=== PATIENT | female | born 1980 | race Caucasian/White ===

== ENCOUNTER 2021-04-05 11:51 | Emergency (ER) | payer MEDICAID ==
[2021-04-05] MEDS ORDERED: Sodium Chloride 0.9% 1000 ML 1,000 ML IV STA (12:21)
[2021-04-05] MEDS ORDERED: Sodium Chloride 0.9% 1000 ML 1,000 ML ONE (12:28)
--- NOTE | 2021-04-05 12:30 | ERPHSYRPT ---
- History of Present Illness Time Seen by Provider: 04/05/21 12:12 Historian: patient Exam Limitations: no limitations Patient Subjective Stated Complaint: RUQ pain Triage Nursing Assessment: Patient ambulated back to ED and transferred self to bed. Patient A+O X3. Patient's skin pink, warm and dry. Patient complains of RUQ pain that started on friday that has gotten worse. Patient states it hurt to roll and she layed on right side holding pressure. Patient states she sneezed and then felt a burning sensation to RUQ. Patient denies pain currently but states pain is constant burning pain when moving. No rebound tenderness noted. Abdomen soft and round with BS X 4. Physician History: Patient is a 40-year-old female presents to our ED with right upper quadrant pain that started 2 days ago. Pain described as an ache that is well localized. No radiation. Patient sneezed and states she experienced a sharp burning sensation. Patient concerned that she "popped" her gallbladder. Symptoms are mild to moderate in intensity. Patient declined pain medication. Patient denies chest pain. No nausea vomiting no diarrhea. No rash. No diaphoresis. Patient requesting gallbladder imaging. Timing/Duration: day(s) (2 days ago) Activities at Onset: none Quality: aching Abdominal Pain Onset Location: RUQ Pain Radiation: no radiation Severity of Pain-Max: moderate Severity of Pain-Current: mild Modifying Factors: Improves With: movement, palpation Associated Symptoms: denies symptoms Previous symptoms: no prior history Allergies/Adverse Reactions: morphine Allergy (Mild, Verified 04/05/21 12:04) Iodinated Contrast Media Adverse Reaction (Unknown, Verified 04/05/21 12:50) Rapid Heart Beat Home Medications: Metoprolol Succinate 50 mg [Toprol Xl 50 MG] 100 mg PO BID 05/23/12 [History] Cariprazine HCl [Vraylar] 1 tab PO HS 04/05/21 [History] Clonazepam 1 tab PO TIDPRN 04/05/21 [History] Hx Tetanus, Diphtheria Vaccination/Date Given: No Hx Influenza Vaccination/Date Given: No Hx Pneumococcal Vaccination/Date Given: No Immunizations Up to Date: Yes Travel Risk - International Travel Have you traveled outside of the country in past 3 weeks: No - Coronavirus Screening Are you exhibiting any of the following symptoms?: No Close contact with a COVID-19 positive Pt in past 14-21 Days: No - Vaccine Status Have you recieved a Covid-19 vaccination: No - Review of Systems Constitutional: No Symptoms, No Fever, No Chills Eyes: No Symptoms Ears, Nose, & Throat: No Symptoms Respiratory: No Symptoms, No Cough, No Dyspnea Cardiac: No Symptoms, No Chest Pain, No Edema, No Syncope Abdominal/Gastrointestinal: No Symptoms, No Abdominal Pain, No Nausea, No Vomiting, No Diarrhea Genitourinary Symptoms: No Symptoms, No Dysuria Musculoskeletal: No Symptoms, No Back Pain, No Neck Pain Skin: No Symptoms, No Rash Neurological: No Symptoms, No Dizziness, No Focal Weakness, No Sensory Changes Psychological: No Symptoms Endocrine: No Symptoms Hematologic/Lymphatic: No Symptoms Immunological/Allergic: No Symptoms All Other Systems: Reviewed and Negative - Past Medical History Pertinent Past Medical History: Yes Neurological History: Migraines, Other ENT History: No Pertinent History Cardiac History: Hypertension Respiratory History: Sleep Apnea, Other Endocrine Medical History: No Pertinent History Musculoskeletal History: No Pertinent History GI Medical History: Hemorrhoids History: No Pertinent History Psycho-Social History: Anxiety, Bipolar, Depression, Panic Disorder, Other Female Reproductive Disorders: No Pertinent History Other Medical History: PTSD - Past Surgical History Past Surgical History: Yes Neuro Surgical History: No Pertinent History Cardiac: No Pertinent History Respiratory: No Pertinent History Gastrointestinal: No Pertinent History Genitourinary: No Pertinent History Musculoskeletal: No Pertinent History Female Surgical History: Section - Social History Smoking Status: Former smoker How long have you smoked: 15 YEARS Exposure to second hand smoke: Yes Drug Use: none Patient Lives Alone: No Significant Family History: heart disease - Female History Hx Last Menstrual Period: last week Hx Now: No - Nursing Vital Signs Nursing Vital Signs: Initial Vital Signs Temperature 97.8 F 04/05/21 12:07 Pulse Rate 89 04/05/21 12:07 Respiratory Rate 18 04/05/21 12:07 Blood Pressure 152/104 04/05/21 12:07 O2 Sat by Pulse Oximetry 97 04/05/21 12:07 Pain Scale Pain Intensity 0 - Physical Exam General Appearance: no apparent distress, alert Eye Exam: PERRL/EOMI, eyes nml inspection Ears, Nose, Throat Exam: normal ENT inspection, pharynx normal, moist mucous membranes Neck Exam: normal inspection, non-tender, supple, full range of motion Respiratory Exam: normal breath sounds, lungs clear, airway intact, No respiratory distress Cardiovascular Exam: regular rate/rhythm, normal heart sounds, normal peripheral pulses Gastrointestinal/Abdomen Exam: soft, tenderness (Tenderness palpation right upper quadrant. Overlying soft tissue intact.), No mass Back Exam: normal inspection, normal range of motion, No CVA tenderness, No vertebral tenderness Extremity Exam: normal inspection, normal range of motion, pelvis stable Neurologic Exam: alert, oriented x 3, cooperative, normal mood/affect, sensation nml, No motor deficits Skin Exam: normal color, warm, dry Lymphatic Exam: No adenopathy SpO2 Interpretation: normal SpO2: 97 O2 Delivery: Room Air - Course Nursing assessment & vital signs reviewed: Yes - CT Exams Abdomen/Pelvis CT Interpretation: Tele-radiologist Report (Fatty hepatomegaly and minimal c olonic diverticulosis. Remaining CT abdomen pelvis without contrast is negative.) - Radiology Ultrasound Exam Gallbladder Ultrasound: tele radiology report (Negative gallbladder sonogram. Incidental fatty liver.) Ordered Tests: Active Orders 24 hr Category Date Time Status IV Insertion STAT Care 04/05/21 12:21 Active ABDOMEN AND PELVIS W/0 CONTRAS [CT] Stat Exams 04/05/21 13:01 Completed GALLBLADDER [US] Stat Exams 04/05/21 12:49 Completed CBC W DIFF Stat Lab 04/05/21 12:26 Completed CMP Stat Lab 04/05/21 12:26 Completed CULTURE,URINE Stat Lab 04/05/21 12:26 Received LIPASE Stat Lab 04/05/21 12:26 Completed Manual Differential NC Stat Lab 04/05/21 12:26 Completed TROPONIN Q3H Lab 04/05/21 12:26 Completed TROPONIN Q3H Lab 04/05/21 15:30 Ordered TROPONIN Q3H Lab 04/05/21 18:30 Ordered TROPONIN Q3H Lab 04/05/21 21:30 Ordered TROPONIN Q3H Lab 04/06/21 00:30 Ordered UA W/RFX UR CULTURE Stat Lab 04/05/21 12:26 Completed Medication Summary Discontinued Medications Generic Name Dose Route Start Last Admin Trade Name Freq PRN Reason Stop Dose Admin Sodium Chloride 1,000 mls @ 999 mls/hr 04/05/21 12:21 04/05/21 14:11 Sodium Chloride 0.9% 1000 Ml IV 04/05/21 13:21 Infused .Q1H1M STA Infusion Sodium Chloride Confirm 04/05/21 12:28 Sodium Chloride 0.9% 1000 Ml Administered 04/05/21 12:29 Dose 1,000 mls @ ud .ROUTE .[facility] Lab/Rad Data: Laboratory Result Diagrams 04/05/21 12:26 04/05/21 12:26 Laboratory Results 04/05/21 04/05/21 04/05/21 Range/Units 12:26 12: 12:26 WBC (4.0-10.5) K/mm3 RBC (4.1-5.4) M/mm3 Hgb (12.0-16.0) gm/dl Hct (35-47) % MCV (78-100) fl MCH (26-32) pg MCHC (32-36) g/dl RDW (11.5-14.0) % Plt Count (150-450) K/mm3 MPV (7.5-11.0) fl Sodium 138 (137-145) mmol/L Potassium 4.2 (3.5-5.1) mmol/L Chloride 105 (98-107) mmol/L Carbon Dioxide 24 (22-30) mmol/L Anion Gap 13.8 (5-15) MEQ/L BUN 14 (7-17) mg/dL Creatinine 0.65 (0.52-1.04) mg/dL Estimated GFR > 60.0 ML/MIN Glucose 90 (74-106) mg/dL Calcium 9.5 (8.4-10.2) mg/dL Total Bilirubin 0.30 (0.2-1.3) mg/dL AST 38 H (14-36) U/L ALT 29 (0-35) U/L Alkaline Phosphatase 109 (38-126) U/L Troponin I < 0.012 (0.000-0.034) ng/mL Serum Total Protein 7.0 (6.3-8.2) g/dL Albumin 4.1 (3.5-5.0) g/dL Lipase 35 (23-300) U/L Urine Color YELLOW (YELLOW) Urine Appearance CLOUDY (CLEAR) Urine pH 5.0 (5-6) Ur Specific [place] 1.020 (1.005-1.025) Urine Protein NEGATIVE (Negative) Urine Ketones NEGATIVE (NEGATIVE) Urine Blood NEGATIVE (0-5) Lj/ul Urine Nitrite NEGATIVE (NEGATIVE) Urine Bilirubin NEGATIVE (NEGATIVE) Urine Urobilinogen NEGATIVE (0-1) mg/dL Ur Leukocyte Esterase SMALL (NEGATIVE) Urine WBC (Auto) 11-15 (0-5) /HPF Urine RBC (Auto) 0-2 (0-2) /HPF U Epithel Cells (Auto) FEW (FEW) /HPF Urine Bacteria (Auto) RARE (NEGATIVE) /HPF Urine Mucus (Auto) SLIGHT (NEGATIVE) /HPF Urine Culture Reflexed YES (NO) Urine Glucose NEGATIVE (NEGATIVE) mg/dL 04/05/21 Range/Units 12:26 WBC 11.5 H (4.0-10.5) K/mm3 RBC 4.18 (4.1-5.4) M/mm3 Hgb 12.0 (12.0-16.0) gm/dl Hct 38.1 (35-47) % MCV 91.1 (78-100) fl MCH 28.7 (26-32) pg MCHC 31.5 L (32-36) g/dl RDW 15.0 H (11.5-14.0) % Plt Count 326 (150-450) K/mm3 MPV 10.0 (7.5-11.0) fl Sodium (137-145) mmol/L Potassium (3.5-5.1) mmol/L Chloride (98-107) mmol/L Carbon Dioxide (22-30) mmol/L Anion Gap (5-15) MEQ/L BUN (7-17) mg/dL Creatinine (0.52-1.04) mg/dL Estimated GFR ML/MIN Glucose (74-106) mg/dL Calcium (8.4-10.2) mg/dL Total Bilirubin (0.2-1.3) mg/dL AST (14-36) U/L ALT (0-35) U/L Alkaline Phosphatase (38-126) U/L Troponin I (0.000-0.034) ng/mL Serum Total Protein (6.3-8.2) g/dL Albumin (3.5-5.0) g/dL Lipase (23-300) U/L Urine Color (YELLOW) Urine Appearance (CLEAR) Urine pH (5-6) Ur Specific [place] (1.005-1.025) Urine Protein (Negative) Urine Ketones (NEGATIVE) Urine Blood (0-5) Lj/ul Urine Nitrite (NEGATIVE) Urine Bilirubin (NEGATIVE) Urine Urobilinogen (0-1) mg/dL Ur Leukocyte Esterase (NEGATIVE) Urine WBC (Auto) (0-5) /HPF Urine RBC (Auto) (0-2) /HPF U Epithel Cells (Auto) (FEW) /HPF Urine Bacteria (Auto) (NEGATIVE) /HPF Urine Mucus (Auto) (NEGATIVE) /HPF Urine Culture Reflexed (NO) Urine Glucose (NEGATIVE) mg/dL - Departure Departure Disposition: Home Clinical Impression: Diverticulosis, Hepatomegaly, Arthritis of spine, UTI (urinary tract infection) Condition: Stable Critical Care Time: No Referrals: OSKAR POLANCO [ACTIVE STAFF] - Additional Instructions: Discharge/Care Plan BEN MURPHY was seen on 04/05/21 in the Emergency Room. The patient was counseled regarding Diagnosis,Lab results, Imaging studies, need for follow up and when to return to the Emergency Room. Prescriptions given: Discharge Note I have spoken with the patient and/or caregivers. I have explained the patient's condition, diagnosis and treatment plan based on the information available to me at this time. I have answered the patient's and/or caregiver's questions and addressed any concerns. The patient and/or caregivers have as good understanding of the patient's diagnosis, condition and treatment plan as can be expected at this point. The vital signs have been stable. The patient's condition is stable and appropriate for discharge from the emergency department. The patient will pursue further outpatient evaluation with the primary care physician or other designated or consulting physician as outlined in the discharge instructions. The patient and/or caregivers are agreeable to this plan of care and follow-up instructions have been explained in detail. The patient and/or caregivers have received these instruction. The patient/and or caregivers are aware that any significant change in condition or worsening of symptoms should prompt an immediate return to this or the closest emergency department or call 911. Prescriptions: Nitrofurantoin Macro 100 mg [Macrobid 100MG Capsule] 100 mg PO BID 7 Days #14 cap
[2021-04-05 12:40] LABS: Appearance CLOUDY (CLEAR); Bacteria RARE /HPF (NEGATIVE); Bilirubin NEGATIVE (NEGATIVE); Blood NEGATIVE Ery/ul (0-5); Epithelial Cells FEW /HPF (FEW); Glucose NEGATIVE (NEGATIVE); Ketones NEGATIVE (NEGATIVE); Leukocyte Esterase SMALL (NEGATIVE); Mucus SLIGHT /HPF (NEGATIVE); Nitrite NEGATIVE (NEGATIVE); Protein,Urine Dip NEGATIVE (Negative); RBC 0-2 /HPF (0-2); Urobilinogen NEGATIVE mg/dL (0-1)
[2021-04-05 12:41] LABS: Hematocrit 38.1 % (35-47); Mean Cell Volume 91.1 fl (78-100); Mean Corpuscular Hemoglobin 28.7 pg (26-32); Mean Corpuscular Hgb Concent. 31.5 g/dl (32-36); Platelet Count 326 K/mm3 (150-450); Red Blood Count 4.18 M/mm3 (4.1-5.4); White Blood Count 11.5 K/mm3 (4.0-10.5)
[2021-04-05 12:45] LABS: ALBUMIN 4.1 g/dL (3.5-5.0); ALKALINE PHOSPHATASE 109 U/L (38-126); ANION GAP 13.8 MEQ/L (5-15); BLOOD UREA NITROGEN 14 mg/dL (7-17); CHLORIDE 105 mmol/L (98-107); Calcium 9.5 mg/dL (8.4-10.2); Carbon Dioxide 24 mmol/L (22-30); Creatinine 1 0.65 mg/dL (0.52-1.04); EST GLOMERULAR FILTRATION RATE > 60.0 ML/MIN; Glucose 90 mg/dL (74-106); LIPASE 35 U/L (23-300); Potassium 4.2 mmol/L (3.5-5.1); SGOT/AST 38 U/L (14-36); SGPT/ALT 29 U/L (0-35); SODIUM 138 mmol/L (137-145)
--- NOTE | 2021-04-05 13:00 | XRAY ---
Indication: Abdomen pain. Two-dimensional gallbladder sonogram performed. Comparison: None Gallbladder normally distended without gallstones, wall thickening, or pericholecystic fluid. Common bile duct measures 6.5 mm. No intrahepatic biliary distention. Visualized pancreas unremarkable. Diffuse fatty echogenic liver without focal solid/cystic mass. No ascites. Right kidney measures 12.2 x 4.5 x 7.2 cm and sonographically unremarkable. Impression: Negative gallbladder sonogram. Incidental fatty liver.
--- NOTE | 2021-04-05 13:26 | XRAY ---
Indication: Right upper quadrant pain. Multiple contiguous axial images obtained through the abdomen and pelvis without contrast. Comparison: None Lung bases are clear. Heart not enlarged. Noncontrasted stomach and bowel loops nonobstructed with normal appendix. Minimal scattered colonic diverticulosis without diverticulitis. No free fluid/air. Diffuse fatty hepatomegaly measuring 27 cm. Remaining liver, gallbladder, pancreas, spleen, adrenal glands, kidneys, ureters, bladder, uterus, and aorta are unremarkable for noncontrast exam. Osseous structures intact with minimal/mild degenerative changes throughout the thoracolumbar spine. No ventral or inguinal hernias. Impression: 1. Fatty hepatomegaly and minimal colonic diverticulosis. 2. Remaining CT abdomen/pelvis without contrast exam is negative.
[2021-04-05 14:28] VITALS: BP 122/64; PULSE 84
[2021-04-05 14:39] VITALS: O2SAT 97
[2021-04-05 14:57] LABS: BAND 1 % (0.0-2.0); Eosinophil 3 % (0.00-3.0); Lymphocytes 26 % (24-44); Monocyte 4 % (0.0-12.0); Neutrophils 66 % (36.0-66.0); Platelet Estimate NORMAL (NORMAL); Total Cells Counted 100
== END 2021-04-05 15:06 | disposition home or self-care (01) ==
LOC: ED 11:51
DX: K57.90 Diverticulosis of intestine, part unspecified, without perforation or abscess without bleeding (principal); R16.0 Hepatomegaly, not elsewhere classified; M47.9 Spondylosis, unspecified; N39.0 Urinary tract infection, site not specified
CPT/HCPCS: 36000; 36415; 74176; 76705; 80053; 81001; 83690; 84484; 85025; 87086; 96360; 99284

== ENCOUNTER 2022-08-26 22:51 | Emergency (ER) | payer MEDICAID, OTHER ==
[2022-08-27] MEDS ORDERED: BABY ASPIRIN 81 MG CHEW PO ONE (00:46)
--- NOTE | 2022-08-27 00:53 | ERPHSYRPT ---
- History of Present Illness Time Seen by Provider: 08/27/22 00:49 Historian: patient, family Exam Limitations: no limitations Patient Subjective Stated Complaint: Pt reports "yesterday I started having weird pain in the middle of my chest between my breasts and today I vomited. I have a lot of meds being changed and anxiety so I am not sure what is going on." Triage Nursing Assessment: Pt alert and oriented x3. No apparent respiratory distress. Skin w/p/d. Ambulated to cot without difficulty. Bowel sounds present in all four quads. Abdomen soft/round/nontender. Pt points to the location of the pain as epigastric region. Physician History: Hx confirmed with mother by independent interview as source. Pt is 41 year old female with prior cardiac Hx of PVCs and negative echo. gained 200 pounds past 3 years. Has had hx epigastric abd pain in past as well. Pos family Hx cardiac at young age. No prior NV or stents, or known CAD in pt, no prior DCVT or PE. No recent hosp or procedures. Had chest pain twinges this evening and emesis x1 and came in to ER, but resolved prior to getting here and no CP now. No Hx trauma. Chest is clear, Ht reg without M. Abd soft nontender without peritoneal signs or masses. ext without edema. Timing/Duration: today Activities at Onset: none Location: substernal, central Chest Pain Radiation: abdomen Severity of Pain-Max: moderate Severity of Pain-Current: none Modifying Factors: Improves With: nothing Associated Symptoms: nausea, vomiting, heartburn, abdominal pain Prior Chest Pain/Cardiac Workup: no prior chest pain Nitro Today/Relief: no nitro taken today Aspirin Treatment Today: 81 mg x 4, provided by ED Allergies/Adverse Reactions: morphine Allergy (Mild, Verified 08/26/22 23:11) Iodinated Contrast Media Adverse Reaction (Unknown, Verified 08/26/22 23:11) Rapid Heart Beat Home Medications: Metoprolol Succinate 50 mg [Toprol Xl 50 MG] 100 mg PO BID 05/23/12 [History] clonazePAM [Clonazepam] 1 tab PO BID 04/05/21 [History] Aspirin 81 gm Chew [Baby Aspirin 81 mg Chew] 81 mg PO DAILY 08/26/22 [History] Brexpiprazole [Rexulti] 0.5 mg PO DAILY 08/26/22 [History] Levothyroxine Sodium 25 mg PO DAILY 08/26/22 [History] Losartan Potassium 100 mg PO DAILY 08/26/22 [History] Metformin HCl 500 mg [Glucophage 500 MG] 1,000 mg PO DAILY 08/26/22 [History] Rosuvastatin Calcium 5 mg PO DAILY 08/26/22 [History] Hx Tetanus, Diphtheria Vaccination/Date Given: No Hx Influenza Vaccination/Date Given: No Hx Pneumococcal Vaccination/Date Given: No Travel Risk - International Travel Have you traveled outside of the country in past 3 weeks: No - Coronavirus Screening Are you exhibiting any of the following symptoms?: No Close contact with a COVID-19 positive Pt in past 14-21 Days: No - Vaccine Status Have you recieved a Covid-19 vaccination: No - Review of Systems Constitutional: No Fever, No Chills Eyes: No Symptoms Ears, Nose, & Throat: No Symptoms Respiratory: No Cough, No Dyspnea Cardiac: Chest Pain, No Edema, No Syncope Abdominal/Gastrointestinal: Abdominal Pain, Nausea, Vomiting, No Diarrhea Genitourinary Symptoms: No Dysuria Musculoskeletal: No Back Pain, No Neck Pain Skin: No Rash Neurological: No Dizziness, No Focal Weakness, No Sensory Changes Psychological: No Symptoms Endocrine: No Symptoms Hematologic/Lymphatic: No Symptoms Immunological/Allergic: No Symptoms All Other Systems: Reviewed and Negative - Past Medical History Pertinent Past Medical History: Yes Neurological History: Migraines, Other ENT History: No Pertinent History Cardiac History: High Cholesterol, Hypertension Respiratory History: Sleep Apnea, Other Endocrine Medical History: No Pertinent History, Diabetes Type II, Hypothyroidism Musculoskeletal History: No Pertinent History GI Medical History: Hemorrhoids History: No Pertinent History Psycho-Social History: Anxiety, Bipolar, Depression, Panic Disorder, Other Female Reproductive Disorders: No Pertinent History Other Medical History: PTSD, gout - Past Surgical History Past Surgical History: Yes Neuro Surgical History: No Pertinent History Cardiac: No Pertinent History Respiratory: No Pertinent History Gastrointestinal: No Pertinent History Genitourinary: No Pertinent History Musculoskeletal: No Pertinent History Female Surgical History: Section - Social History Smoking Status: Former smoker How long have you smoked: 15 YEARS Exposure to second hand smoke: Yes Drug Use: none Patient Lives Alone: No Significant Family History: heart disease - Female History Hx Last Menstrual Period: 07/30/22 Hx Now: No - Nursing Vital Signs Nursing Vital Signs: Initial Vital Signs Temperature 99.5 F 08/26/22 22:55 Pulse Rate 100 H 08/26/22 22:55 Respiratory Rate 17 08/26/22 22:55 Blood Pressure 171/92 08/26/22 22:55 O2 Sat by Pulse Oximetry 97 08/26/22 22:55 Pain Scale Pain Intensity 0 - Physical Exam General Appearance: no apparent distress, alert Eye Exam: PERRL/EOMI, eyes nml inspection Ears, Nose, Throat Exam: normal ENT inspection, moist mucous membranes Neck Exam: normal inspection, non-tender, supple, full range of motion Respiratory Exam: normal breath sounds, lungs clear, No respiratory distress Cardiovascular Exam: regular rate/rhythm, normal heart sounds Gastrointestinal/Abdomen Exam: soft, No tenderness, No mass Pelvic Exam: deferred Rectal Exam: deferred Back Exam: normal inspection, No CVA tenderness, No vertebral tenderness Extremity Exam: normal inspection, normal range of motion Neurologic Exam: alert, oriented x 3, cooperative, normal mood/affect, sensation nml, No motor deficits Skin Exam: normal color, warm, dry SpO2 Interpretation: normal SpO2: 97 O2 Delivery: Room Air - Course Nursing assessment & vital signs reviewed: Yes EKG Interpreted by Me: Sinus Rhythm, NORMAL AXIS, NORMAL INTERVALS, NORMAL QRS, NORMAL ST-T - Radiology Exams Chest X-ray Interpretation: Reviewed by me, Other (Perihilar infiltrates and granulomata) Ordered Tests: Active Orders 24 hr Category Date Time Status Nutritional Services Director STAT Care 08/27/22 00:48 Active EKG-ER Only STAT Care 08/27/22 00:46 Active Pulse Oximetry (ED) STAT Care 08/27/22 00:46 Active CHEST 1 VIEW (PORTABLE) Stat Exams 08/27/22 00:47 Taken AMYLASE Stat Lab 08/27/22 01:25 Completed CBC W DIFF Stat Lab 08/27/22 01:25 Completed CMP Stat Lab 08/27/22 01:25 Completed CULTURE,URINE Stat Lab 08/27/22 01:08 Received D-DIMER QUANTITATIVE Stat Lab 08/27/22 01:25 Completed HCG QUALITATIVE,SERUM Stat Lab 08/27/22 01:25 Completed LIPASE Stat Lab 08/27/22 01:25 Completed Lactic Acid Stat Lab 08/27/22 01:30 Completed NT PRO BNPII Stat Lab 08/27/22 01:25 Completed TROPONIN Q4H Lab 08/27/22 01:25 Completed TROPONIN Q4H Lab 08/27/22 05:00 Ordered TROPONIN Q4H Lab 08/27/22 09:00 Ordered UA W/RFX UR CULTURE Stat Lab 08/27/22 01:08 Completed Medication Summary Discontinued Medications Generic Name Dose Route Start Last Admin Trade Name Kayli PRN Reason Stop Dose Admin Aspirin 324 mg 08/27/22 00:46 08/27/22 01:31 Aspirin 81 Mg Tab.Chew PO 08/27/22 00:47 324 mg STAT ONE Administration Lab/Rad Data: Laboratory Result Diagrams 08/27/22 01:25 08/27/22 01:25 Laboratory Results 08/27/22 08/27/22 08/27/22 Range/Units 01:30 01:25 01:25 WBC (4.0-10.5) x10^3/uL RBC (4.1-5.4) x10^6/uL Hgb (12.0-16.0) g/dL Hct (35-47) % MCV (78-100) fL MCH (26-32) pg MCHC (32-36) g/dL RDW (11.5-14.0) % Plt Count (150-450) x10^3/uL MPV (7.5-11.0) fL Gran % (36.0-66.0) % Immature Gran % (Auto) (0.00-0.4) % Nucleat RBC Rel Count (0.00-0.1) % Eos # (Auto) (0-0.5) x10^3/uL Immature Gran # (Auto) (0.00-0.03) x10^3u/L Absolute Lymphs (auto) (1.0-4.6) x10^3/uL Absolute Monos (auto) (0.0-1.3) x10^3/uL Absolute Nucleated RBC (0.00-0.01) x10^3u/L Lymphocytes % (24.0-44.0) % Monocytes % (0.0-12.0) % Eosinophils % (0.00-5.0) % Basophils % (0.0-0.4) % Absolute Granulocytes (1.4-6.9) x10^3/uL Basophils # (0-0.4) x10^3/uL D-Dimer (0.0-0.50) mg/L Sodium (137-145) mmol/L Potassium (3.5-5.1) mmol/L Chloride (98-107) mmol/L Carbon Dioxide (22-30) mmol/L Anion Gap (5-15) MEQ/L BUN (7-17) mg/dL Creatinine (0.52-1.04) mg/dL Estimated GFR ML/MIN Glucose (74-106) mg/dL Lactic Acid 1.9 (0.4-2.0) Calcium (8.4-10.2) mg/dL Total Bilirubin (0.2-1.3) mg/dL AST (14-36) U/L ALT (0-35) U/L Alkaline Phosphatase (38-126) U/L Troponin I < 0.012 (0.000-0.034) ng/mL NT-Pro-B Natriuret Pep (<300) pg/mL Serum Total Protein (6.3-8.2) g/dL Albumin (3.5-5.0) g/dL Amylase (30-110) U/L Lipase (23-300) U/L Serum , Qual NEGATIVE (Negative) Urine Color (Yellow) Urine Appearance (Clear) Urine pH (4.6-8.0) Ur Specific [place] (1.005-1.030) Urine Protein (Negative) Urine Glucose (UA) (Negative) mg/dL Urine Ketones (Negative) Urine Blood (Negative) Urine Nitrite (Negative) Urine Bilirubin (Negative) Urine Urobilinogen (0.2) mg/dL Ur Leukocyte Esterase (Negative) U Hyaline Cast (Auto) (0-2) /LPF Urine Microscopic RBC (0-5) /HPF Urine Microscopic WBC (0-5) /HPF Ur Epithelial Cells (None Seen) /HPF Urine Bacteria (None Seen) /HPF Urine Culture Reflexed (NO) 08/27/22 08/27/22 08/27/22 Range/Units 01:25 01:25 01:25 WBC 11.8 H (4.0-10.5) x10^3/uL RBC 3.82 L (4.1-5.4) x10^6/uL Hgb 11.3 L (12.0-16.0) g/dL Hct 35.5 (35-47) % MCV 92.9 (78-100) fL MCH 29.6 (26-32) pg MCHC 31.8 L (32-36) g/dL RDW 14.4 H (11.5-14.0) % Plt Count 274 (150-450) x10^3/uL MPV 9.9 (7.5-11.0) fL Gran % 73.2 H (36.0-66.0) % Immature Gran % (Auto) 2.5 H (0.00-0.4) % Nucleat RBC Rel Count 0.0 (0.00-0.1) % Eos # (Auto) 0.11 (0-0.5) x10^3/uL Immature Gran # (Auto) 0.29 H (0.00-0.03) x10^3u/L Absolute Lymphs (auto) 2.05 (1.0-4.6) x10^3/uL Absolute Monos (auto) 0.66 (0.0-1.3) x10^3/uL Absolute Nucleated RBC 0.00 (0.00-0.01) x10^3u/L Lymphocytes % 17.4 L (24.0-44.0) % Monocytes % 5.6 (0.0-12.0) % Eosinophils % 0.9 (0.00-5.0) % Basophils % 0.4 (0.0-0.4) % Absolute Granulocytes 8.64 H (1.4-6.9) x10^3/uL Basophils # 0.05 (0-0.4) x10^3/uL D-Dimer 0.29 (0.0-0.50) mg/L Sodium 138 (137-145) mmol/L Potassium 4.0 (3.5-5.1) mmol/L Chloride 104 (98-107) mmol/L Carbon Dioxide 22 (22-30) mmol/L Anion Gap 15.1 H (5-15) MEQ/L BUN 16 (7-17) mg/dL Creatinine 0.56 (0.52-1.04) mg/dL Estimated GFR > 60.0 ML/MIN Glucose 154 H (74-106) mg/dL Lactic Acid (0.4-2.0) Calcium 9.2 (8.4-10.2) mg/dL Total Bilirubin 0.40 (0.2-1.3) mg/dL AST 43 H (14-36) U/L ALT 35 (0-35) U/L Alkaline Phosphatase 160 H (38-126) U/L Troponin I (0.000-0.034) ng/mL NT-Pro-B Natriuret Pep 150 (<300) pg/mL Serum Total Protein 7.4 (6.3-8.2) g/dL Albumin 4.1 (3.5-5.0) g/dL Amylase 51 (30-110) U/L Lipase 37 (23-300) U/L Serum , Qual (Negative) Urine Color (Yellow) Urine Appearance (Clear) Urine pH (4.6-8.0) Ur Specific [place] (1.005-1.030) Urine Protein (Negative) Urine Glucose (UA) (Negative) mg/dL Urine Ketones (Negative) Urine Blood (Negative) Urine Nitrite (Negative) Urine Bilirubin (Negative) Urine Urobilinogen (0.2) mg/dL Ur Leukocyte Esterase (Negative) U Hyaline Cast (Auto) (0-2) /LPF Urine Microscopic RBC (0-5) /HPF Urine Microscopic WBC (0-5) /HPF Ur Epithelial Cells (None Seen) /HPF Urine Bacteria (None Seen) /HPF Urine Culture Reflexed (NO) 08/27/22 Range/Units 01:08 WBC (4.0-10.5) x10^3/uL RBC (4.1-5.4) x10^6/uL Hgb (12.0-16.0) g/dL Hct (35-47) % MCV (78-100) fL MCH (26-32) pg MCHC (32-36) g/dL RDW (11.5-14.0) % Plt Count (150-450) x10^3/uL MPV (7.5-11.0) fL Gran % (36.0-66.0) % Immature Gran % (Auto) (0.00-0.4) % Nucleat RBC Rel Count (0.00-0.1) % Eos # (Auto) (0-0.5) x10^3/uL Immature Gran # (Auto) (0.00-0.03) x10^3u/L Absolute Lymphs (auto) (1.0-4.6) x10^3/uL Absolute Monos (auto) (0.0-1.3) x10^3/uL Absolute Nucleated RBC (0.00-0.01) x10^3u/L Lymphocytes % (24.0-44.0) % Monocytes % (0.0-12.0) % Eosinophils % (0.00-5.0) % Basophils % (0.0-0.4) % Absolute Granulocytes (1.4-6.9) x10^3/uL Basophils # (0-0.4) x10^3/uL D-Dimer (0.0-0.50) mg/L Sodium (137-145) mmol/L Potassium (3.5-5.1) mmol/L Chloride (98-107) mmol/L Carbon Dioxide (22-30) mmol/L Anion Gap (5-15) MEQ/L BUN (7-17) mg/dL Creatinine (0.52-1.04) mg/dL Estimated GFR ML/MIN Glucose (74-106) mg/dL Lactic Acid (0.4-2.0) Calcium (8.4-10.2) mg/dL Total Bilirubin (0.2-1.3) mg/dL AST (14-36) U/L ALT (0-35) U/L Alkaline Phosphatase (38-126) U/L Troponin I (0.000-0.034) ng/mL NT-Pro-B Natriuret Pep (<300) pg/mL Serum Total Protein (6.3-8.2) g/dL Albumin (3.5-5.0) g/dL Amylase (30-110) U/L Lipase (23-300) U/L Serum , Qual (Negative) Urine Color Yellow (Yellow) Urine Appearance Cloudy A (Clear) Urine pH 6.0 (4.6-8.0) Ur Specific [place] 1.025 (1.005-1.030) Urine Protein Trace A (Negative) Urine Glucose (UA) Negative (Negative) mg/dL Urine Ketones Trace A (Negative) Urine Blood Negative (Negative) Urine Nitrite Negative (Negative) Urine Bilirubin Negative (Negative) Urine Urobilinogen 1.0 A (0.2) mg/dL Ur Leukocyte Esterase Small A (Negative) U Hyaline Cast (Auto) 3-5 A (0-2) /LPF Urine Microscopic RBC 0-2 (0-5) /HPF Urine Microscopic WBC 21-50 A (0-5) /HPF Ur Epithelial Cells Moderate A (None Seen) /HPF Urine Bacteria Few A (None Seen) /HPF Urine Culture Reflexed YES (NO) - Progress Progress: improved, re-examined Air Movement: good Progress Note: 08/27/22 02:57 Pain has resolved N/V resolved. and pt wishes to go. 08/27/22 02:59 Heart score is 2-3 0 for age, 0 for slightly suspicious, 2 for several risk factors such as DM, HPTN, fam hx, 0 for trop. Pt is advised after discussion of results that even though no cardiac event is identified, there still could be a cardiac event evolving undetected , or another CV or abdominal condition - she and family understand and wish to chose outpt f/u rather than further eval in hospital at this time, and they have the capacity to make this choice, and given the current lack of symptoms ( having resolved, Hx and findings), this is quite reasonable. 08/27/22 03:07 discussed prescription for UTI with pt and mother including risks benefits and they wish to proceed. Blood Culture(s) Obtained: No Antibiotics given: No Counseled pt/family regarding: lab results, diagnosis, need for follow-up, rad results Medical Desision Making - Independent Historian Additional History obtained from: Mother - Discussion of managment Reviewed:: Test results, Need for additional workup Agreed on:: Treatment plan, need for follow-up - Diagnostic Testing Diagnostic test were ordered, analyzed, and reviewed by me: Yes Radiological Interpretation: Reviewed by me - Risk of complications The pt has a mod risk of morbidity or mortality based on: Need for prescription drug management - Departure Departure Disposition: Home Clinical Impression: UTI (urinary tract infection), chest pain and vomiting resolved, Resolved abdominal pain Condition: Good Critical Care Time: No Referrals: RILEY BOLANOS [Primary Care Provider] - Follow up/PCP as directed Instructions: Chest Pain (DC), Urinary Tract Infection, Adult (DC), Nausea and Vomiting, Adult (DC), Abdominal Pain, Adult ED Additional Instructions: We did not determine a cause for your chest and abdominal pain or vomiting although we did find urinary tract infection so followup with your Dr. is indicated. Also have the urine rechecked to determine that it has resolved as well. There still could an underlying cardiac or other condition so seeing your Dr is important. Return meantime if symptoms recur or any other concerns. Prescriptions: Cephalexin Mh 500 mg [Keflex 500 mg] 500 mg PO Q6H 10 Days #40 cap
[2022-08-27 01:31] LABS: Absolute Neutrophil Ct (ANC) 8.64 x10^3/uL (1.4-6.9); BASOPHIL % 0.4 % (0.0-0.4); Basophil (Absolute #) 0.05 x10^3/uL (0-0.4); Eosinophil % 0.9 % (0.00-5.0); Eosinophil (Absolute #) 0.11 x10^3/uL (0-0.5); Hematocrit 35.5 % (35-47); Hemoglobin 11.3 g/dL (12.0-16.0); IMMATURE GRAN # 0.29 x10^3u/L (0.00-0.03); IMMATURE GRAN % 2.5 % (0.00-0.4); Lymphocyte (Absolute #) 2.05 x10^3/uL (1.0-4.6); Lymphocytes % 17.4 % (24.0-44.0); Mean Cell Volume 92.9 fL (78-100); Mean Corpuscular Hemoglobin 29.6 pg (26-32); Mean Corpuscular Hgb Concent. 31.8 g/dL (32-36); Mean Platelet Volume 9.9 fL (7.5-11.0); Monocyte (Absolute #) 0.66 x10^3/uL (0.0-1.3); Monocytes % 5.6 % (0.0-12.0); Neutrophil % 73.2 % (36.0-66.0); Platelet Count 274 x10^3/uL (150-450); Red Blood Count 3.82 x10^6/uL (4.1-5.4); Red Cell Distribution Width 14.4 % (11.5-14.0); White Blood Count 11.8 x10^3/uL (4.0-10.5)
[2022-08-27 01:46] LABS: Appearance Cloudy (Clear); Bacteria Few /HPF (None Seen); Bilirubin Negative (Negative); Blood Negative (Negative); Epithelial Cells Moderate /HPF (None Seen); Glucose, Urine Negative (Negative); Ketones Trace (Negative); Leukocyte Esterase Small (Negative); Nitrite Negative (Negative); Protein,Urine Dip Trace (Negative); RBC 0-2 /HPF (0-5); Specific Gravity 1.025 (1.005-1.030); WBC 21-50 /HPF (0-5)
[2022-08-27 01:47] LABS: ADD URINE CULTURE? YES (NO)
[2022-08-27 01:58] LABS: ALBUMIN 4.1 g/dL (3.5-5.0); ALKALINE PHOSPHATASE 160 U/L (38-126); AMYLASE 51 U/L (30-110); ANION GAP 15.1 MEQ/L (5-15); BLOOD UREA NITROGEN 16 mg/dL (7-17); CHLORIDE 104 mmol/L (98-107); Calcium 9.2 mg/dL (8.4-10.2); Carbon Dioxide 22 mmol/L (22-30); Creatinine 1 0.56 mg/dL (0.52-1.04); EST GLOMERULAR FILTRATION RATE > 60.0 ML/MIN; Glucose 154 mg/dL (74-106); LIPASE 37 U/L (23-300); NT PRO BNPII 150 pg/mL (<300); SGOT/AST 43 U/L (14-36); SGPT/ALT 35 U/L (0-35); SODIUM 138 mmol/L (137-145); Total Protein 7.4 g/dL (6.3-8.2)
[2022-08-27 03:28] VITALS: BP 143/83; PULSE 86; O2SAT 98
--- NOTE | 2022-08-27 08:45 | XRAY ---
Indication: Chest pain. Comparison: None Portable chest demonstrates a few calcified granulomas. No focal infiltrate, consolidation, or large effusion. Heart not enlarged for AP portable technique. Bony thorax intact. Impression: Nonacute chest with incidental old granulomatous disease.
== END 2022-08-27 03:28 | disposition home or self-care (01) ==
LOC: ED 22:51
DX: N39.0 Urinary tract infection, site not specified (principal); R07.9 Chest pain, unspecified; R11.2 Nausea with vomiting, unspecified; R10.9 Unspecified abdominal pain; E78.5 Hyperlipidemia, unspecified; I10 Essential (primary) hypertension; E11.9 Type 2 diabetes mellitus without complications; Z79.84 Long term (current) use of oral hypoglycemic drugs; Z79.899 Other long term (current) drug therapy; Z28.310 Unvaccinated for COVID-19
CPT/HCPCS: 36415; 71045; 80053; 81001; 82150; 83605; 83690; 83880; 84484; 84703; 85025; 85379; 87086; 93005; 93041; 94760; 99284; A9270-GY

== ENCOUNTER 2022-11-28 16:24 | Emergency (ER) | payer OTHER ==
--- NOTE | 2022-11-28 16:28 | ERPHSYRPT ---
- History of Present Illness Historian: patient Exam Limitations: no limitations Timing/Duration: day(s) (2) Activities at Onset: none Quality: aching, pressure Abdominal Pain Onset Location: RLQ, other (Pelvic) Pain Radiation: no radiation Severity of Pain-Max: mild (To moderate) Severity of Pain-Current: mild (To moderate) Modifying Factors: Improves With: nothing Associated Symptoms: denies symptoms Previous symptoms: no prior history Hx Tetanus, Diphtheria Vaccination/Date Given: No Hx Influenza Vaccination/Date Given: No Hx Pneumococcal Vaccination/Date Given: No - History of Present Illness Time Seen by Provider: 11/28/22 16:27 Physician History: This is a morbidly obese 42-year-old white female who presents with 2 days of pelvic pressure and right lower quadrant abdominal pain that began today. She has not had an appendectomy or cholecystectomy. She has had 2 C-sections in the past. She denies abnormal vaginal discharge. She denies vaginal bleeding. Patient has had no nausea vomiting or diarrhea symptoms. Patient has a history of PVCs but had an echo cardiogram in the past that was negative. She has a history of hypothyroidism, hypertension, diabetes, hyperlipidemia, anxiety/panic disorder and PTSD (KENDELL KHANNA) Allergies/Adverse Reactions: morphine Allergy (Mild, Verified 11/28/22 16:35) Iodinated Contrast Media Adverse Reaction (Unknown, Verified 11/28/22 16:35) Rapid Heart Beat Home Medications: Metoprolol Succinate 50 mg [Toprol Xl 50 MG] 100 mg PO BID 05/23/12 [History] clonazePAM [Clonazepam] 1 tab PO BID 04/05/21 [History] Aspirin 81 gm Chew [Baby Aspirin 81 mg Chew] 81 mg PO DAILY 08/26/22 [His tory] Levothyroxine Sodium 25 mg PO DAILY 08/26/22 [History] Losartan Potassium 100 mg PO DAILY 08/26/22 [History] Metformin HCl 500 mg [Glucophage 500 MG] 500 mg PO DAILY 08/26/22 [History] Rosuvastatin Calcium 5 mg PO DAILY 08/26/22 [History] Travel Risk - International Travel Have you traveled outside of the country in past 3 weeks: No - Coronavirus Screening Are you exhibiting any of the following symptoms?: No Close contact with a COVID-19 positive Pt in past 14-21 Days: No - Vaccine Status Have you recieved a Covid-19 vaccination: No - Review of Systems Constitutional: No Symptoms Eyes: No Symptoms Ears, Nose, & Throat: No Symptoms Respiratory: No Symptoms Cardiac: No Symptoms Abdominal/Gastrointestinal: Abdominal Pain (Described as a pressure and ache in the right lower quadrant and pelvic region), No Nausea, No Vomiting, No Diarrhea, No Constipation Genitourinary Symptoms: Other (Pelvic pressure), No Dysuria, No Hematuria, No Flank Pain, No Vaginal Bleeding, No Vaginal Discharge Musculoskeletal: No Symptoms Skin: No Symptoms Neurological: No Symptoms Psychological: No Symptoms Endocrine: No Symptoms Hematologic/Lymphatic: No Symptoms Immunological/Allergic: No Symptoms All Other Systems: Reviewed and Negative - Past Medical History Pertinent Past Medical History: Yes Neurological History: Migraines, Other ENT History: No Pertinent History Cardiac History: High Cholesterol, Hypertension Respiratory History: Sleep Apnea, Other Endocrine Medical History: No Pertinent History, Diabetes Type II, Hypothyroidism Musculoskeletal History: No Pertinent History GI Medical History: Hemorrhoids History: No Pertinent History Psycho-Social History: Anxiety, Bipolar, Depression, Panic Disorder, Other Female Reproductive Disorders: No Pertinent History Other Medical History: PTSD, gout - Past Surgical History Past Surgical History: Yes Neuro Surgical History: No Pertinent History Cardiac: No Pertinent History Respiratory: No Pertinent History Gastrointestinal: No Pertinent History Genitourinary: No Pertinent History Musculoskeletal: No Pertinent History Female Surgical History: Section - Social History Smoking Status: Former smoker How long have you smoked: 15 YEARS Exposure to second hand smoke: Yes Drug Use: none Patient Lives Alone: No Significant Family History: heart disease - Physical Exam General Appearance: no apparent distress, alert, anxiety, obese Eye Exam: PERRL/EOMI, eyes nml inspection Ears, Nose, Throat Exam: normal ENT inspection, moist mucous membranes Neck Exam: normal inspection, non-tender, supple, full range of motion Respiratory Exam: normal breath sounds, lungs clear, airway intact, No chest tenderness, No respiratory distress Cardiovascular Exam: regular rate/rhythm, normal heart sounds, normal peripheral pulses Gastrointestinal/Abdomen Exam: soft, normal bowel sounds, tenderness (Right lower quadrant to palpation), guarding (Right lower quadrant to palpation), No rebound Pelvic Exam: not done Rectal Exam: not done Back Exam: normal inspection, normal range of motion, No CVA tenderness, No vertebral tenderness Extremity Exam: normal inspection, normal range of motion, pelvis stable Neurologic Exam: alert, oriented x 3, cooperative, track greaser II-XII nml as tested, normal mood/affect, nml cerebellar function, nml station & gait, sensation nml Skin Exam: normal color, warm, dry Lymphatic Exam: No adenopathy SpO2 Interpretation: normal O2 Delivery: Room Air - Nursing Vital Signs Nursing Vital Signs: Initial Vital Signs Temperature 98.4 F 11/28/22 16:37 Pulse Rate 113 H 11/28/22 16:37 Respiratory Rate 18 11/28/22 16:37 Blood Pressure 155/74 11/28/22 16:37 O2 Sat by Pulse Oximetry 98 11/28/22 16:37 Pain Scale Pain Intensity 4 Ordered Tests: Active Orders 24 hr Category Date Time Status IV Insertion STAT Care 11/28/22 16:45 Active ABDOMEN AND PELVIS W/0 CONTRAS [CT] Stat Exams 11/28/22 16:44 Taken AMYLASE Stat Lab 11/28/22 17:00 Completed CBC W DIFF Stat Lab 11/28/22 17:00 Completed CMP Stat Lab 11/28/22 17:00 Completed CULTURE,URINE Stat Lab 11/28/22 17:04 Received HCG QUALITATIVE, SERUM Stat Lab 11/28/22 17:00 Completed LIPASE Stat Lab 11/28/22 17:00 Completed POCT GLUCOSE Stat Lab 11/28/22 20:17 Completed UA W/RFX UR CULTURE Stat Lab 11/28/22 17:04 Completed Medication Summary Generic Name Dose Route Start Last Admin Trade Name Freq PRN Reason Stop Dose Admin Ceftriaxone Sodium/Dextrose 2 g in 50 mls @ 100 mls/hr 11/28/22 21:05 11/28/22 21:09 Rocephin 2 Gm-D5w 50ml Bag IV 11/28/22 21:34 100 ml/hr STAT STA 100 mls/hr Administration Discontinued Medications Generic Name Dose Route Start Last Admin Trade Name Freq PRN Reason Stop Dose Admin Sodium Chloride 1,000 mls @ 999 mls/hr 11/28/22 20:07 11/28/22 20:08 Sodium Chloride 0.9% 1000 Ml IV 11/28/22 21:07 999 mls/hr .Q1H1M STA Administration Sodium Chloride Confirm 11/28/22 20:06 Sodium Chloride 0.9% 1000 Ml Administered 11/28/22 20:07 Dose 1,000 mls @ ud .ROUTE .STK-MED ONE Ceftriaxone Sodium/Dextrose Confirm 11/28/22 21:07 Rocephin 2 Gm-D5w 50ml Bag Administered 11/28/22 21:08 Dose 2 g in 50 mls @ ud IV .STK-MED ONE Lab/Rad Data: Laboratory Result Diagrams 11/28/22 17:00 11/28/22 17:00 Laboratory Results 11/28/22 11/28/22 11/28/22 Range/Units 20:17 17:04 17:00 WBC (4.0-10.5) x10^3/uL RBC (4.1-5.4) x10^6/uL Hgb (12.0-16.0) g/dL Hct (35-47) % MCV (78-100) fL MCH (26-32) pg MCHC (32-36) g/dL RDW (11.5-14.0) % Plt Count (150-450) x10^3/uL MPV (7.5-11.0) fL Gran % (36.0-66.0) % Immature Gran % (Auto) (0.00-0.4) % Nucleat RBC Rel Count (0.00-0.1) % Eos # (Auto) (0-0.5) x10^3/uL Immature Gran # (Auto) (0.00-0.03) x10^3u/L Absolute Lymphs (auto) (1.0-4.6) x10^3/uL Absolute Monos (auto) (0.0-1.3) x10^3/uL Absolute Nucleated RBC (0.00-0.01) x10^3u/L Lymphocytes % (24.0-44.0) % Monocytes % (0.0-12.0) % Eosinophils % (0.00-5.0) % Basophils % (0.0-0.4) % Absolute Granulocytes (1.4-6.9) x10^3/uL Basophils # (0-0.4) x10^3/uL Sodium (137-145) mmol/L Potassium (3.5-5.1) mmol/L Chloride (98-107) mmol/L Carbon Dioxide (22-30) mmol/L Anion Gap (5-15) MEQ/L BUN (7-17) mg/dL Creatinine (0.52-1.04) mg/dL Estimated GFR ML/MIN Glucose (74-106) mg/dL POC Glucometer 116 H (74 to 106) mg/dL Calcium (8.4-10.2) mg/dL Total Bilirubin (0.2-1.3) mg/dL AST (14-36) U/L ALT (0-35) U/L Alkaline Phosphatase (38-126) U/L Serum Total Protein (6.3-8.2) g/dL Albumin (3.5-5.0) g/dL Amylase (30-110) U/L Lipase (23-300) U/L Serum HCG, Qual NEGATIVE (NEGATIVE) Urine Color Bradley A (Yellow) Urine Appearance Turbid A (Clear) Urine pH 5.0 (4.6-8.0) Ur Specific [place] 1.020 (1.005-1.030) Urine Protein 30 (Negative) Urine Glucose (UA) Negative (Negative) mg/dL Urine Ketones Negative (Negative) Urine Blood Moderate A (Negative) Urine Nitrite Positive A (Negative) Urine Bilirubin Moderate A (Negative) Urine Urobilinogen 1.0 A (0.2) mg/dL Ur Leukocyte Esterase Large A (Negative) U Hyaline Cast (Auto) NONE SEEN (0-2) /LPF Urine Microscopic RBC 0-2 (0-5) /HPF Urine Microscopic WBC 51-100 A (0-5) /HPF Ur Epithelial Cells Moderate A (None Seen) /HPF Urine Bacteria Moderate A (None Seen) /HPF Urine Culture Reflexed YES (NO) 11/28/22 11/28/22 Range/Units 17:00 17:00 WBC 15.0 H (4.0-10.5) x10^3/uL RBC 4.52 (4.1-5.4) x10^6/uL Hgb 13.2 (12.0-16.0) g/dL Hct 40.6 (35-47) % MCV 89.8 (78-100) fL MCH 29.2 (26-32) pg MCHC 32.5 (32-36) g/dL RDW 14.7 H (11.5-14.0) % Plt Count 377 (150-450) x10^3/uL MPV 9.7 (7.5-11.0) fL Gran % 76.3 H (36.0-66.0) % Immature Gran % (Auto) 1.4 H (0.00-0.4) % Nucleat RBC Rel Count 0.0 (0.00-0.1) % Eos # (Auto) 0.11 (0-0.5) x10^3/uL Immature Gran # (Auto) 0.21 H (0.00-0.03) x10^3u/L Absolute Lymphs (auto) 2.41 (1.0-4.6) x10^3/uL Absolute Monos (auto) 0.75 (0.0-1.3) x10^3/uL Absolute Nucleated RBC 0.00 (0.00-0.01) x10^3u/L Lymphocytes % 16.1 L (24.0-44.0) % Monocytes % 5.0 (0.0-12.0) % Eosinophils % 0.7 (0.00-5.0) % Basophils % 0.5 (0.0-0.4) % Absolute Granulocytes 11.42 H (1.4-6.9) x10^3/uL Basophils # 0.07 (0-0.4) x10^3/uL Sodium 136 L (137-145) mmol/L Potassium 3.5 (3.5-5.1) mmol/L Chloride 96 L (98-107) mmol/L Carbon Dioxide 22 (22-30) mmol/L Anion Gap 20.9 H (5-15) MEQ/L BUN 18 H (7-17) mg/dL Creatinine 0.74 (0.52-1.04) mg/dL Estimated GFR > 60.0 ML/MIN Glucose 146 H (74-106) mg/dL POC Glucometer (74 to 106) mg/dL Calcium 9.7 (8.4-10.2) mg/dL Total Bilirubin 0.60 (0.2-1.3) mg/dL AST 68 H (14-36) U/L ALT 39 H (0-35) U/L Alkaline Phosphatase 175 H (38-126) U/L Serum Total Protein 8.7 H (6.3-8.2) g/dL Albumin 4.6 (3.5-5.0) g/dL Amylase 56 (30-110) U/L Lipase 49 (23-300) U/L Serum HCG, Qual (NEGATIVE) Urine Color (Yellow) Urine Appearance (Clear) Urine pH (4.6-8.0) Ur Specific [place] (1.005-1.030) Urine Protein (Negative) Urine Glucose (UA) (Negative) mg/dL Urine Ketones (Negative) Urine Blood (Negative) Urine Nitrite (Negative) Urine Bilirubin (Negative) Urine Urobilinogen (0.2) mg/dL Ur Leukocyte Esterase (Negative) U Hyaline Cast (Auto) (0-2) /LPF Urine Microscopic RBC (0-5) /HPF Urine Microscopic WBC (0-5) /HPF Ur Epithelial Cells (None Seen) /HPF Urine Bacteria (None Seen) /HPF Urine Culture Reflexed (NO) - Progress Progress: improved, pain not gone completely, re-examined Counseled pt/family regarding: lab results, diagnosis, need for follow-up, rad results - Progress Progress Note: 11/28/22 19:07 Patient transfer of care to Dr. Pinto at shift change. He will follow-up on the work-up study results and make final disposition. (KENDELL KHANNA) 11/28/22 21:07 Patient is checked out to me at shift change from Dr. Khanna with pending CT abdomen pelvis read. Patient presented with right-sided abdominal pain/pelvic pain gradually started couple days ago with progressive worsening. Patient during my evaluation is not complaining of any pain. Patient states it comes and goes and does not need any pain medications. Her work-up showed white count of 15, gap of 20 with normal bicarb and no ketones in the urine, with a glucose of 116, not in DKA. She is given fluid bolus. Feeling much better on r eevaluation. She does have UTI and I have given a dose of 2 g Rocephin IV in here. CT abdomen pelvis preliminary read by Dr. Gonzalez revealed 7 cm right ovarian cyst but no other acute abdominal pelvic findings. Patient is not in any pain on repeated evaluation at all. I do not think it is ovarian torsion. No acute appendicitis. No stone or obstructive uropathy. Does have UTI and will continue with cefpodoxime to go home. Recommended outpatient primary care and [facility] follow-up for further evaluation. Discussed with patient in detail about symptoms/signs of worsening needing emergent return to ER which she seems understanding. Stable for discharge. (PORFIRIO PINTO) Medical Desision Making - Independent Historian Additional History obtained from: Mother - Diagnostic Testing Diagnostic test were ordered, analyzed, and reviewed by me: Yes Radiological Interpretation: Reviewed by me, Teleradiologist Report - Risk of complications The pt has a mod risk of morbidity or mortality based on: Need for prescription drug management - Departure Departure Disposition: Home Critical Care Time: No - Departure Clinical Impression: Abdominal pain, Ovarian cyst, Acute UTI Condition: Stable Referrals: SARAH DE LA PAZ NP [Primary Care Provider] - Follow up with PCP 1 day BONNY BARRON DO [ACTIVE STAFF] - Follow up/PCP as directed (Call tomorrow for appointment for reevaluation of ovarian cyst) Instructions: Urinary Tract Infection, Adult (DC), Ovarian Cyst ED Additional Instructions: Take Tylenol/diclofenac as needed for pain. Follow-up with primary care and [facility] for reevaluation. Drink plenty of fluids to keep yourself well-hydrated. Return to ER for intractable pain/vomiting/difficulty urination/fever chills etc. Prescriptions: Diclofenac Sodium 50 mg PO TID PRN 7 Days #20 tab PRN Reason: Pain Cefpodoxime Proxetil 200 mg [Vantin 200 mg] 200 mg PO BID 7 Days #14 tablet
[2022-11-28 17:33] LABS: Absolute Neutrophil Ct (ANC) 11.42 x10^3/uL (1.4-6.9); BASOPHIL % 0.5 % (0.0-0.4); Basophil (Absolute #) 0.07 x10^3/uL (0-0.4); Eosinophil % 0.7 % (0.00-5.0); Eosinophil (Absolute #) 0.11 x10^3/uL (0-0.5); Hematocrit 40.6 % (35-47); Hemoglobin 13.2 g/dL (12.0-16.0); IMMATURE GRAN # 0.21 x10^3u/L (0.00-0.03); IMMATURE GRAN % 1.4 % (0.00-0.4); Lymphocyte (Absolute #) 2.41 x10^3/uL (1.0-4.6); Lymphocytes % 16.1 % (24.0-44.0); Mean Cell Volume 89.8 fL (78-100); Mean Corpuscular Hemoglobin 29.2 pg (26-32); Mean Corpuscular Hgb Concent. 32.5 g/dL (32-36); Mean Platelet Volume 9.7 fL (7.5-11.0); Monocyte (Absolute #) 0.75 x10^3/uL (0.0-1.3); Neutrophil % 76.3 % (36.0-66.0); Platelet Count 377 x10^3/uL (150-450); Red Blood Count 4.52 x10^6/uL (4.1-5.4); Red Cell Distribution Width 14.7 % (11.5-14.0)
[2022-11-28 17:48] LABS: ALBUMIN 4.6 g/dL (3.5-5.0); ALKALINE PHOSPHATASE 175 U/L (38-126); AMYLASE 56 U/L (30-110); ANION GAP 20.9 MEQ/L (5-15); BLOOD UREA NITROGEN 18 mg/dL (7-17); CHLORIDE 96 mmol/L (98-107); Calcium 9.7 mg/dL (8.4-10.2); Carbon Dioxide 22 mmol/L (22-30); Creatinine 1 0.74 mg/dL (0.52-1.04); EST GLOMERULAR FILTRATION RATE > 60.0 ML/MIN; Glucose 146 mg/dL (74-106); LIPASE 49 U/L (23-300); Potassium 3.5 mmol/L (3.5-5.1); SGOT/AST 68 U/L (14-36); SGPT/ALT 39 U/L (0-35); SODIUM 136 mmol/L (137-145); Total Protein 8.7 g/dL (6.3-8.2)
[2022-11-28 17:52] LABS: HCG SERUM TEST NEGATIVE (NEGATIVE)
[2022-11-28 18:03] LABS: Appearance Turbid (Clear); Bilirubin Moderate (Negative); Blood Moderate (Negative); Glucose, Urine Negative (Negative); Hyaline Casts NONE SEEN /LPF (0-2); Ketones Negative (Negative); Leukocyte Esterase Large (Negative); Nitrite Positive (Negative); Protein,Urine Dip 30 (Negative)
[2022-11-28 18:04] LABS: Bacteria Moderate /HPF (None Seen); Epithelial Cells Moderate /HPF (None Seen); RBC 0-2 /HPF (0-5); WBC 51-100 /HPF (0-5)
[2022-11-28 18:05] LABS: ADD URINE CULTURE? YES (NO)
[2022-11-28] MEDS ORDERED: Sodium Chloride 0.9% 1000 ML 1,000 ML ONE (20:06)
[2022-11-28] MEDS ORDERED: Sodium Chloride 0.9% 1000 ML 1,000 ML IV STA (20:07)
[2022-11-28] MEDS ORDERED: ROCEPHIN 2 Gm-D5w 50ML BAG** 2 G/50 ML IVPB IV STA (21:05)
[2022-11-28] MEDS ORDERED: ROCEPHIN 2 Gm-D5w 50ML BAG** 2 G/50 ML IVPB IV ONE (21:07)
[2022-11-28 21:43] VITALS: BP 113/53; PULSE 99; O2SAT 96
--- NOTE | 2022-11-29 08:34 | XRAY ---
Indication: Pelvic pain/pressure 3 days. Multiple contiguous axial images obtained through the abdomen and pelvis without contrast. Comparison: April 05, 2021. Lung bases remain clear. Heart not enlarged. Noncontrasted stomach and bowel loops nonobstructed again with normal appendix. Minimal colonic diverticulosis without diverticulitis. Again 27 cm fatty hepatomegaly. New 7 cm right ovary cyst. Uterus demonstrates thickened endometrial stripe up to 2 cm. No free fluid/air. Remaining liver, gallbladder, pancreas, spleen, adrenal glands, kidneys, ureters, bladder, uterus, and aorta are unremarkable for noncontrast exam. Osseous structures intact again with minimal/mild degenerative changes throughout the spine. Impression: 1. New 7 cm right ovary cyst. Uterus also demonstrates thickened endometrial stripe that should be correlated with patient's menstrual cycle. Pelvic sonogram may yield further information if clinically warranted. 2. Again fatty hepatomegaly and colonic diverticulosis.
== END 2022-11-28 22:02 | disposition home or self-care (01) ==
LOC: ED 16:24
DX: N39.0 Urinary tract infection, site not specified (principal); N83.201 Unspecified ovarian cyst, right side; R10.31 Right lower quadrant pain; I10 Essential (primary) hypertension; E11.9 Type 2 diabetes mellitus without complications; E78.5 Hyperlipidemia, unspecified; Z79.84 Long term (current) use of oral hypoglycemic drugs; Z79.899 Other long term (current) drug therapy; Z28.310 Unvaccinated for COVID-19
CPT/HCPCS: 36000; 36415; 74176; 80053; 81001; 82150; 82947; 83690; 84703; 85025; 87086; 96360; 96365; 99284; J0696

== ENCOUNTER 2023-01-13 15:51 | Emergency (ER) | payer OTHER ==
[2023-01-13 16:03] VITALS: TEMP 96.5; O2SAT 96
--- NOTE | 2023-01-13 16:05 | ERPHSYRPT ---
- History of Present Illness Time Seen by Provider: 01/13/23 16:04 Source: patient Exam Limitations: no limitations Patient Subjective Stated Complaint: Right leg swelling Triage Nursing Assessment: Patient ambulated back to ED and transferred self to bed. Patient A+O X 3. Patient's skin pink, warm and dry. Patient complains of right lower leg swelling for one week. Patient's right inner calf noted to be swollen. Patient denies pain or discomfort. No redness or warmth noted. Physician History: This is a morbidly obese 42-year-old white female whose family has a history of blood clots and she presents with an enlarging, posterior right lower leg subcutaneous mass that she is concerned about a blood clot. It is tender. It has been present for a week and is enlarging. She denies fever. She denies redness. She denies trauma to the area. This patient has a history of hyperlipidemia, diabetes, hypertension, hypothyroidism, sleep apnea, panic disorder, PTSD and bipolar disorder. Method of Injury: other (No injury) Occurred: last week (Present and enlarging) Severity of Pain-Max: mild Severity of Pain-Current: mild Lower Extremities Pain: leg: right (Lower leg posteriorly, subcutaneous) Modifying Factors: Improves With: other (Mildly tender to palpation) Associated Symptoms: none Allergies/Adverse Reactions: morphine Allergy (Mild, Verified 01/13/23 15:57) Iodinated Contrast Media Adverse Reaction (Unknown, Verified 01/13/23 15:57) Rapid Heart Beat Home Medications: Metoprolol Succinate 50 mg [Toprol Xl 50 MG] 100 mg PO BID 05/23/12 [History] clonazePAM [Clonazepam] 1 tab PO BID 04/05/21 [History] Aspirin 81 gm Chew [Baby Aspirin 81 mg Chew] 81 mg PO DAILY 08/26/22 [History] Levothyroxine Sodium 25 mg PO DAILY 08/26/22 [History] Losartan Potassium 100 mg PO DAILY 08/26/22 [History] Metformin HCl 500 mg [Glucophage 500 MG] 500 mg PO DAILY 08/26/22 [History] Rosuvastatin Calcium 5 mg PO DAILY 08/26/22 [History] Hx Tetanus, Diphtheria Vaccination/Date Given: No Hx Influenza Vaccination/Date Given: No Hx Pneumococcal Vaccination/Date Given: No Immunizations Up to Date: Yes Travel Risk - International Travel Have you traveled outside of the country in past 3 weeks: No - Coronavirus Screening Are you exhibiting any of the following symptoms?: No Close contact with a COVID-19 positive Pt in past 14-21 Days: No - Vaccine Status Have you recieved a Covid-19 vaccination: No - Review of Systems Constitutional: No Symptoms Eyes: No Symptoms Ears, Nose, & Throat: No Symptoms Respiratory: No Symptoms Cardiac: No Symptoms Abdominal/Gastrointestinal: No Symptoms Genitourinary Symptoms: No Symptoms Musculoskeletal: Other (Mildly tender visible subcutaneous soft tissue mass) Skin: No Symptoms Neurological: No Symptoms Psychological: No Symptoms Endocrine: No Symptoms Hematologic/Lymphatic: No Symptoms Immunological/Allergic: No Symptoms All Other Systems: Reviewed and Negative - Past Medical History Pertinent Past Medical History: Yes Neurological History: Migraines, Other ENT History: No Pertinent History Cardiac History: High Cholesterol, Hypertension Respiratory History: Sleep Apnea, Other Endocrine Medical History: No Pertinent History, Diabetes Type II, Hypothyroidism Musculoskeletal History: No Pertinent History GI Medical History: Hemorrhoids History: No Pertinent History Psycho-Social History: Anxiety, Bipolar, Depression, Panic Disorder, Other Female Reproductive Disorders: No Pertinent History Other Medical History: PTSD, gout - Past Surgical History Past Surgical History: Yes Neuro Surgical History: No Pertinent History Cardiac: No Pertinent History Respiratory: No Pertinent History Gastrointestinal: No Pertinent History Genitourinary: No Pertinent History Musculoskeletal: No Pertinent History Female Surgical History: Section - Social History Smoking Status: Former smoker How long have you smoked: 15 YEARS Exposure to second hand smoke: Yes Drug Use: none Patient Lives Alone: No Significant Family History: heart disease - Female History Hx Last Menstrual Period: 01/03/2023 Hx Now: No - Nursing Vital Signs Nursing Vital Signs: Initial Vital Signs Temperature 96.5 F 01/13/23 15:58 Pulse Rate 91 H 01/13/23 15:58 Respiratory Rate 18 01/13/23 15:58 Blood Pressure 156/91 01/13/23 15:58 O2 Sat by Pulse Oximetry 96 01/13/23 15:58 Pain Scale Pain Intensity 0 - Physical Exam General Appearance: no apparent distress, alert, anxiety, obese Eyes, Ears, Nose, Throat Exam: normal ENT inspection, moist mucous membranes Neck Exam: normal inspection, non-tender, supple, full range of motion Cardiovascular/Respiratory Exam: chest non-tender, no respiratory distress Gastrointestinal/Abdominal Exam: non-tender Back Exam: normal inspection, normal range of motion, No CVA tenderness, No vertebral tenderness Hips Exam: bilateral: non-tender, normal inspection, normal range of motion, no evidence of injury Legs Exam: right leg: swelling (Mildly tender to palpation, visible right posterior lower leg subcutaneous mass), left leg: non-tender, normal inspection, bilateral leg: normal range of motion, no evidence of injury Knees Exam: bilateral knee: non-tender, normal inspection, normal range of mot ion, no evidence of injury Ankle Exam: bilateral ankle: non-tender, normal inspection, normal range of motion, no evidence of injury Foot Exam: bilateral foot: non-tender, normal inspection, normal range of motion, no evidence of injury Neuro/Tendon Exam: normal sensation, normal motor functions, normal tendon functions, no evidence tendon injury Mental Status Exam: alert, oriented x 3, cooperative Skin Exam: normal color, warm, dry SpO2 Interpretation: normal SpO2: 96 O2 Delivery: Room Air - Course Nursing assessment & vital signs reviewed: Yes Ordered Tests: Active Orders 24 hr Category Date Time Status VENOUS UNILAT/LIMITED EXTREMIT [US] Stat Exams 01/13/23 16:21 Taken - Progress Progress: unchanged, pain not gone completely, re-examined Progress Note: 01/13/23 17:23 Venous Doppler right lower extremity was interpreted by the ultrasound t ech/cutting and splicing supervisor and she reported that this study is negative for DVT. This patient's medical issue is 1 of low complexity. The level complexity and the work-up performed is based on the patient's past medical history, family history, review of the patient's medication list, review of the patient's drug allergy list, history of present illness, physical findings on examination. The study performed in this patient was a venous Doppler right lower extremity. It was negative for DVT. Patient will be discharged home and instructed to follow-up with primary care provider for further evaluation management. Counseled pt/family regarding: diagnosis, need for follow-up, rad results Medical Desision Making - Diagnostic Testing Diagnostic test were ordered, analyzed, and reviewed by me: Yes Radiological Interpretation: Reviewed by me, Teleradiologist Report - Risk of complications Low Risk: Low risk of morbidity from additional dx testing or treatment - Departure Departure Disposition: Home Clinical Impression: Right leg swelling Condition: Stable Critical Care Time: No Referrals: SARAH DE LA PAZ NP [Primary Care Provider] - Follow up/PCP as directed Additional Instructions: Continue medication as prescribed. Follow-up with your primary care provider for further evaluation management.
[2023-01-13 17:02] VITALS: RESP 17
[2023-01-13 17:43] VITALS: BP 147/71; PULSE 79
--- NOTE | 2023-01-14 08:59 | XRAY ---
Indication: Swelling. Two-dimensional sonogram and color Doppler imaging of the major venous vessels of the right leg performed. Comparison: None No thrombus seen in the examined deep venous vessels of the right leg including greater saphenous vein. Veins demonstrate normal compressibility. Venous waveforms are normal with and without augmentation. Targeted soft tissues ultrasound over calf is negative for focal solid/cystic mass or abnormal fluid collection. Impression: Right leg negative for DVT. Comment: Preliminary report was given.
== END 2023-01-13 17:44 | disposition home or self-care (01) ==
LOC: ED 15:51
DX: R22.41 Localized swelling, mass and lump, right lower limb (principal); M79.661 Pain in right lower leg; E78.5 Hyperlipidemia, unspecified; E11.9 Type 2 diabetes mellitus without complications; I10 Essential (primary) hypertension; Z79.84 Long term (current) use of oral hypoglycemic drugs; Z79.899 Other long term (current) drug therapy; Z28.310 Unvaccinated for COVID-19
CPT/HCPCS: 93971; 99282

== ENCOUNTER 2023-02-14 04:32 | Emergency (ER) | payer OTHER ==
[2023-02-14 04:40] VITALS: TEMP 98.1
--- NOTE | 2023-02-14 05:36 | ERPHSYRPT ---
<BLAIRLEIDYR - Last Filed: 02/14/23 06:31> - History of Present Illness Time Seen by Provider: 02/14/23 05:00 Historian: patient Exam Limitations: no limitations Patient Subjective Stated Complaint: pt states she has been having intermittent chest pain since approx 2200 last night. states she thinks it may be anxiety. describes pain as tightness and squeezing and radiates into upper abd Triage Nursing Assessment: pt alert and oriented, answers questions approp. pt ambulates into room with steady gait noted. respirations nonlabored. skin warm and dry, heart rate 94, sinus rhythm. Physician History: 42 years old female with history of PVCs/PACs presented in the ER with chief complaint of substernal chest pressure since 10 PM intermittent, moderate intensity, radiating to upper abdomen, no significant aggravating or relieving factors. Denies associated difficulty breathing. No fever chills or cough reported. Allergies/Adverse Reactions: morphine Allergy (Mild, Verified 02/14/23 04:53) Iodinated Contrast Media Adverse Reaction (Unknown, Verified 02/14/23 04:53) Rapid Heart Beat Home Medications: Metoprolol Succinate 50 mg [Toprol Xl 50 MG] 100 mg PO BID 05/23/12 [History] clonazePAM [Clonazepam] 1 tab PO BID 04/05/21 [History] Aspirin 81 gm Chew [Baby Aspirin 81 mg Chew] 81 mg PO DAILY 08/26/22 [History] Levothyroxine Sodium 25 mg PO DAILY 08/26/22 [History] Losartan Potassium 100 mg PO DAILY 08/26/22 [History] Metformin HCl 500 mg [Glucophage 500 MG] 500 mg PO DAILY 08/26/22 [History] Rosuvastatin Calcium 5 mg PO DAILY 08/26/22 [History] Hx Tetanus, Diphtheria Vaccination/Date Given: No Hx Influenza Vaccination/Date Given: No Hx Pneumococcal Vaccination/Date Given: No Immunizations Up to Date: No Travel Risk - International Travel Have you traveled outside of the country in past 3 weeks: No - Coronavirus Screening Are you exhibiting any of the following symptoms?: No Close contact with a COVID-19 positive Pt in past 14-21 Days: No - Vaccine Status Have you recieved a Covid-19 vaccination: No - Review of Systems Constitutional: No Symptoms Eyes: No Symptoms Ears, Nose, & Throat: No Symptoms Respiratory: No Symptoms Cardiac: Chest Pain Abdominal/Gastrointestinal: No Symptoms Genitourinary Symptoms: No Symptoms Musculoskeletal: No Symptoms Skin: No Symptoms Neurological: No Symptoms Psychological: Anxiety Endocrine: No Symptoms Hematologic/Lymphatic: No Symptoms Immunological/Allergic: No Symptoms - Past Medical History Pertinent Past Medical History: Yes Neurological History: Migraines, Other ENT History: No Pertinent History Cardiac History: High Cholesterol, Hypertension Respiratory History: Sleep Apnea, Other Endocrine Medical History: No Pertinent History, Diabetes Type II, Hypothyroidism Musculoskeletal History: No Pertinent History GI Medical History: Hemorrhoids History: No Pertinent History Psycho-Social History: Anxiety, Bipolar, Depression, Panic Disorder, Other Female Reproductive Disorders: No Pertinent History Other Medical History: PTSD, gout, pcos - Past Surgical History Past Surgical History: Yes Neuro Surgical History: No Pertinent History Cardiac: No Pertinent History Respiratory: No Pertinent History Gastrointestinal: No Pertinent History Genitourinary: No Pertinent History Musculoskeletal: No Pertinent History Female Surgical History: Section - Social History Smoking Status: Former smoker How long have you smoked: 15 YEARS Exposure to second hand smoke: No Drug Use: none Patient Lives Alone: No Significant Family History: heart disease - Female History Hx Last Menstrual Period: last month Hx Now: No - Physical Exam General Appearance: no apparent distress, alert, anxiety Eye Exam: PERRL/EOMI Ears, Nose, Throat Exam: normal ENT inspection Neck Exam: normal inspection, non-tender, full range of motion Respiratory Exam: normal breath sounds, lungs clear Cardiovascular Exam: regular rate/rhythm, normal heart sounds Gastrointestinal/Abdomen Exam: soft, normal bowel sounds, No tenderness Back Exam: normal inspection, normal range of motion Extremity Exam: normal inspection, normal range of motion Neurologic Exam: alert, oriented x 3, cooperative Skin Exam: normal color SpO2 Interpretation: normal SpO2: 96 O2 Delivery: Room Air - Course EKG Interpreted by Me: RATE (97), Sinus Rhythm, NORMAL AXIS, NORMAL INTERVALS, Non-specific ST Changes - Progress Progress: improved, re-examined Air Movement: good Progress Note: 02/14/23 05:35 42 years old female with history of PVCs/PACs presented in the ER with chief complaint of substernal chest pressure since 10 PM intermittent, moderate intensity, radiating to upper abdomen, no significant aggravating or relieving factors. Denies associated difficulty breathing. No fever chills or cough reported. She is given Toradol for symptomatic relief. EKG is sinus rhythm with no acute ST elevations. Although chest pain work-up. 02/14/23 06:31 She is feeling much better on reevaluation after Toradol. Chest pain is resolved. Negative troponins. Chest x-ray negative for any acute cardiopulmonary findings reviewed by me, official report is pending. 02/14/23 06:50 Waiting for second troponin, care is transferred to Dr. Garcia at shift change. Blood Culture(s) Obtained: No Antibiotics given: No Counseled pt/family regarding: lab results, diagnosis, need for follow-up, rad results Medical Desision Making - Diagnostic Testing Diagnostic test were ordered, analyzed, and reviewed by me: Yes Radiological Interpretation: Interpreted by me, Reviewed by me - Departure Clinical Impression: Chest pain Condition: Stable Referrals: SARAH D ELA PAZ, [employer]PING AND [employer]CEIVING [employer]PER[employer]OR [Primary Care Provider] - Follow up/PCP as directed Instructions: Chest Pain (DC) Additional Instructions: Follow up with your family MD Return to ER for increasing pain or shortness of breath <PRAVIN GARCIA - Last Filed: 02/14/23 09:06> - Nursing Vital Signs Nursing Vital Signs: Initial Vital Signs Temperature 98.1 F 02/14/23 04:33 Pulse Rate 97 H 02/14/23 04:33 Respiratory Rate 18 02/14/23 04:33 Blood Pressure 143/89 02/14/23 04:33 O2 Sat by Pulse Oximetry 96 02/14/23 04:33 Pain Scale Pain Intensity 0 - Radiology Ultrasound Exam Gallbladder Ultrasound: discussed w/radiologist (LINDA) Ordered Tests: Active Orders 24 hr Category Date Time Status Regular Senior Care Provider STAT Care 02/14/23 05:41 Active EKG-ER Only STAT Care 02/14/23 05:39 Active IV Insertion STAT Care 02/14/23 05:39 Active CHEST 1 VIEW (PORTABLE) Stat Exams 02/14/23 05:56 Taken US ABDOMEN LIMITED [ABDOMINAL-LIMITED] [US] Stat Exams 02/14/23 07:29 Completed CBC W DIFF Stat Lab 02/14/23 05:55 Completed CMP Stat Lab 02/14/23 05:55 Completed HCG QUALITATIVE, SERUM Stat Lab 02/14/23 05:55 Completed NT PRO BNPII Stat Lab 02/14/23 05:55 Completed TROPONIN Q4H Lab 02/14/23 05:55 Completed TROPONIN Q4H Lab 02/14/23 08:06 Completed TROPONIN Q4H Lab 02/14/23 13:45 Ordered Transfer Order Routine Transfer 02/14/23 Ordered Medication Summary Discontinued Medications Generic Name Dose Route Start Last Admin Trade Name Freq PRN Reason Stop Dose Admin Aspirin 324 mg 02/14/23 05:39 02/14/23 05:47 Aspirin 81 Mg Tab.Chew PO 02/14/23 05:40 324 mg STAT ONE Administration Aspirin Confirm 02/14/23 05:43 Aspirin 81 Mg Tab.Chew Administered 02/14/23 05:44 Dose 324 mg .ROUTE .STK-MED ONE Ketorolac Tromethamine 30 mg 02/14/23 05:41 02/14/23 05:46 Ketorolac Tromethamine 30 Mg/Ml Inj IV 02/14/23 05:42 30 mg STAT ONE Administration Ketorolac Tromethamine Confirm 02/14/23 05:43 Ketorolac Tromethamine 30 Mg/Ml Inj Administered 02/14/23 05:44 Dose 30 mg .ROUTE .STK-MED ONE Lab/Rad Data: Laboratory Result Diagrams 02/14/23 05:55 02/14/23 05:55 Laboratory Results 02/14/23 02/14/23 02/14/23 Range/Units 08:06 05:55 05:55 WBC (4.0-10.5) x10^3/uL RBC (4.1-5.4) x10^6/uL Hgb (12.0-16.0) g/dL Hct (35-47) % MCV (78-100) fL MCH (26-32) pg MCHC (32-36) g/dL RDW (11.5-14.0) % Plt Count (150-450) x10^3/uL MPV (7.5-11.0) fL Gran % (36.0-66.0) % Immature Gran % (Auto) (0.00-0.4) % Nucleat RBC Rel Count (0.00-0.1) % Eos # (Auto) (0-0.5) x10^3/uL Immature Gran # (Auto) (0.00-0.03) x10^3u/L Absolute Lymphs (auto) (1.0-4.6) x10^3/uL Absolute Monos (auto) (0.0-1.3) x10^3/uL Absolute Nucleated RBC (0.00-0.01) x10^3u/L Lymphocytes % (24.0-44.0) % Monocytes % (0.0-12.0) % Eosinophils % (0.00-5.0) % Basophils % (0.0-0.4) % Absolute Granulocytes (1.4-6.9) x10^3/uL Basophils # (0-0.4) x10^3/uL Sodium (137-145) mmol/L Potassium (3.5-5.1) mmol/L Chloride (98-107) mmol/L Carbon Dioxide (22-30) mmol/L Anion Gap (5-15) MEQ/L BUN (7-17) mg/dL Creatinine (0.52-1.04) mg/dL Estimated GFR ML/MIN Glucose (74-106) mg/dL Calcium (8.4-10.2) mg/dL Total Bilirubin (0.2-1.3) mg/dL AST (14-36) U/L ALT (0-35) U/L Alkaline Phosphatase (38-126) U/L Troponin I < 0.012 < 0.012 (0.000-0.034) ng/mL NT-Pro-B Natriuret Pep (<300) pg/mL Serum Total Protein (6.3-8.2) g/dL Albumin (3.5-5.0) g/dL Serum HCG, Qual NEGATIVE (NEGATIVE) 02/14/23 02/14/23 Range/Units 05:55 05:55 WBC 14.5 H (4.0-10.5) x10^3/uL RBC 3.99 L (4.1-5.4) x10^6/uL Hgb 11.7 L (12.0-16.0) g/dL Hct 37.0 (35-47) % MCV 92.7 (78-100) fL MCH 29.3 (26-32) pg MCHC 31.6 L (32-36) g/dL RDW 15.0 H (11.5-14.0) % Plt Count 404 (150-450) x10^3/uL MPV 9.8 (7.5-11.0) fL Gran % 70.0 H (36.0-66.0) % Immature Gran % (Auto) 1.7 H (0.00-0.4) % Nucleat RBC Rel Count 0.0 (0.00-0.1) % Eos # (Auto) 0.11 (0-0.5) x10^3/uL Immature Gran # (Auto) 0.24 H (0.00-0.03) x10^3u/L Absolute Lymphs (auto) 3.20 (1.0-4.6) x10^3/uL Absolute Monos (auto) 0.72 (0.0-1.3) x10^3/uL Absolute Nucleated RBC 0.00 (0.00-0.01) x10^3u/L Lymphocytes % 22.0 L (24.0-44.0) % Monocytes % 5.0 (0.0-12.0) % Eosinophils % 0.8 (0.00-5.0) % Basophils % 0.5 (0.0-0.4) % Absolute Granulocytes 10.19 H (1.4-6.9) x10^3/uL Basophils # 0.07 (0-0.4) x10^3/uL Sodium 135 L (137-145) mmol/L Potassium 3.4 L (3.5-5.1) mmol/L Chloride 96 L (98-107) mmol/L Carbon Dioxide 26 (22-30) mmol/L Anion Gap 16.8 H (5-15) MEQ/L BUN 14 (7-17) mg/dL Creatinine 0.68 (0.52-1.04) mg/dL Estimated GFR > 60.0 ML/MIN Glucose 137 H (74-106) mg/dL Calcium 9.9 (8.4-10.2) mg/dL Total Bilirubin 0.50 (0.2-1.3) mg/dL AST 39 H (14-36) U/L ALT 43 H (0-35) U/L Alkaline Phosphatase 166 H (38-126) U/L Troponin I (0.000-0.034) ng/mL NT-Pro-B Natriuret Pep 23.5 (<300) pg/mL Serum Total Protein 7.9 (6.3-8.2) g/dL Albumin 4.6 (3.5-5.0) g/dL Serum HCG, Qual (NEGATIVE) - Progress Progress Note: 02/14/23 07:30 Assumed care of pt at 7AM w mid-sternal chest pain/epigastric pain starting at 2200 last night. Pt is now pain free but was up to an 8/10. She denies N/V/D but was milldly dyspneic. Sig PMH includes DM/HTN/hyperlipidemia but denies smoking/CT/CAD. Alert and oriented x3 Lungs CTA Heart RRR wo murmur Abdomen morbidly obese/NTTP No focal weakness/CN2-12 intact 02/14/23 09:03 EKG NSR/Rate 97/Prolonged QTc/Nonspecific Twave abnormalities/No acute St segmen t changes Heart score 3 No active chest pain since 7AM Medical Desision Making - Social Determinants of Health Pt's dx & treatment plan are significantly limited by SDOH: Unemployed - Risk of complications Low Risk: Low risk of morbidity from additional dx testing or treatment - Departure Departure Disposition: Home Critical Care Time: No
[2023-02-14] MEDS ORDERED: BABY ASPIRIN 81 MG CHEW PO ONE (05:39)
[2023-02-14] MEDS ORDERED: TORAdol 30 mg Injection IV ONE (05:41)
[2023-02-14] MEDS ORDERED: BABY ASPIRIN 81 MG CHEW ONE (05:43)
[2023-02-14] MEDS ORDERED: TORAdol 30 mg Injection ONE (05:43)
[2023-02-14 06:04] LABS: Absolute Neutrophil Ct (ANC) 10.19 x10^3/uL (1.4-6.9); BASOPHIL % 0.5 % (0.0-0.4); Basophil (Absolute #) 0.07 x10^3/uL (0-0.4); Eosinophil % 0.8 % (0.00-5.0); Eosinophil (Absolute #) 0.11 x10^3/uL (0-0.5); Hemoglobin 11.7 g/dL (12.0-16.0); IMMATURE GRAN # 0.24 x10^3u/L (0.00-0.03); IMMATURE GRAN % 1.7 % (0.00-0.4); Mean Cell Volume 92.7 fL (78-100); Mean Corpuscular Hemoglobin 29.3 pg (26-32); Mean Corpuscular Hgb Concent. 31.6 g/dL (32-36); Mean Platelet Volume 9.8 fL (7.5-11.0); Monocyte (Absolute #) 0.72 x10^3/uL (0.0-1.3); Platelet Count 404 x10^3/uL (150-450); Red Blood Count 3.99 x10^6/uL (4.1-5.4); White Blood Count 14.5 x10^3/uL (4.0-10.5)
[2023-02-14 06:12] LABS: HCG SERUM TEST NEGATIVE (NEGATIVE)
[2023-02-14 06:24] LABS: ALBUMIN 4.6 g/dL (3.5-5.0); ALKALINE PHOSPHATASE 166 U/L (38-126); ANION GAP 16.8 MEQ/L (5-15); BLOOD UREA NITROGEN 14 mg/dL (7-17); CHLORIDE 96 mmol/L (98-107); Calcium 9.9 mg/dL (8.4-10.2); Carbon Dioxide 26 mmol/L (22-30); Creatinine 1 0.68 mg/dL (0.52-1.04); EST GLOMERULAR FILTRATION RATE > 60.0 ML/MIN; Glucose 137 mg/dL (74-106); NT PRO BNPII 23.5 pg/mL (<300); Potassium 3.4 mmol/L (3.5-5.1); SGOT/AST 39 U/L (14-36); SGPT/ALT 43 U/L (0-35); SODIUM 135 mmol/L (137-145); Total Protein 7.9 g/dL (6.3-8.2)
[2023-02-14 08:08] VITALS: RESP 19
--- NOTE | 2023-02-14 08:52 | XRAY ---
Indication: Abdomen/chest pain. Two-dimensional right upper quadrant abdominal sonogram performed. Comparison: None Sonogram limited due to patient body habitus. Pancreas and liver not well seen. Visualized liver demonstrates fatty echogenicity without focal solid/cystic mass. No large free fluid. Visualized gallbladder normally distended without gallstones, wall thickening, or pericholecystic fluid. Common bile duct measures 5.3 mm. Right kidney measures 12.3 cm in length and sonographically unremarkable. Impression: Limited right upper quadrant sonogram. Nonvisualization pancreas. Fatty liver.
--- NOTE | 2023-02-14 09:20 | XRAY ---
Indication: Chest pain. Comparison: August 27, 2022 Portable apical lordotic chest again demonstrates normal heart and lungs with incidental tiny calcified granulomas. Bony thorax intact. No new/acute findings.
[2023-02-14 09:57] VITALS: BP 127/76; PULSE 96; O2SAT 95
== END 2023-02-14 10:10 | disposition home or self-care (01) ==
LOC: ED 04:32
DX: R07.9 Chest pain, unspecified (principal); E78.5 Hyperlipidemia, unspecified; I10 Essential (primary) hypertension; E11.9 Type 2 diabetes mellitus without complications; Z79.84 Long term (current) use of oral hypoglycemic drugs; Z79.899 Other long term (current) drug therapy; Z28.310 Unvaccinated for COVID-19; Z56.0 Unemployment, unspecified
CPT/HCPCS: 36000; 36415; 71045; 76705; 80053; 83880; 84484; 84703; 85025; 93005; 93041; 96374; 99284; J1885; A9270-GY

== ENCOUNTER 2023-09-13 16:11 | Emergency (ER) | payer OTHER ==
[2023-09-13 16:33] VITALS: PULSE 94; RESP 18; TEMP 97.5
[2023-09-13 16:54] LABS: Absolute Neutrophil Ct (ANC) 10.67 x10^3/uL (1.4-6.9); BASOPHIL % 0.2 % (0.0-0.4); Basophil (Absolute #) 0.03 x10^3/uL (0-0.4); Eosinophil % 2.8 % (0.00-5.0); Eosinophil (Absolute #) 0.41 x10^3/uL (0-0.5); Hematocrit 38.7 % (35-47); Hemoglobin 12.4 g/dL (12.0-16.0); IMMATURE GRAN % 0.7 % (0.00-0.4); Lymphocyte (Absolute #) 2.53 x10^3/uL (1.0-4.6); Lymphocytes % 17.5 % (24.0-44.0); Mean Cell Volume 91.7 fL (78-100); Mean Corpuscular Hemoglobin 29.4 pg (26-32); Mean Platelet Volume 9.6 fL (7.5-11.0); Monocyte (Absolute #) 0.69 x10^3/uL (0.0-1.3); Monocytes % 4.8 % (0.0-12.0); Platelet Count 327 x10^3/uL (150-450); Red Blood Count 4.22 x10^6/uL (4.1-5.4); Red Cell Distribution Width 15.9 % (11.5-14.0); White Blood Count 14.4 x10^3/uL (4.0-10.5)
--- NOTE | 2023-09-13 16:57 | ERPHSYRPT ---
- History of Present Illness Time Seen by Provider: 09/13/23 16:55 Historian: patient Exam Limitations: no limitations Patient Subjective Stated Complaint: nausea/vomiting and abdominal pain Triage Nursing Assessment: Patient reports to ER with complaints of abdominal pain rating it 10/10 at this time. Patient reports that she has been taking Raven njaro for several months but her dose was recently increased to 10mg weekly from 7.5mg weekly- first dose injected 09/10/23 and approx. 24 hrs after injection began having abdominal pain, nausea and vomiting. Patient reports that she has been belching and passing gas which smells "like sulfur". Physician History: nausea/vomiting and abdominal pain today Patient reports to ER with complaints of abdominal pain rating it 10/10 at this time. Patient reports that she has been taking Mounjaro for several months but her dose was recently increased to 10mg weekly from 7.5mg weekly- first dose injected 09/10/23 and approx. 24 hrs after injection began having abdominal pain, nausea and vomiting. Patient reports that she has been belching and passing gas which smells "like sulfur". Timing/Duration: today Activities at Onset: none Abdominal Pain Onset Location: epigastric Pain Radiation: no radiation Severity of Pain-Max: moderate Severity of Pain-Current: moderate Modifying Factors: Improves With: nothing Associated Symptoms: nausea, vomiting Previous symptoms: no prior history Allergies/Adverse Reactions: morphine Allergy (Mild, Verified 09/13/23 16:33) Iodinated Contrast Media Adverse Reaction (Unknown, Verified 09/13/23 16:33) Rapid Heart Beat Home Medications: clonazePAM [Clonazepam] 1 tab PO BID 04/05/21 [History] Aspirin 81 gm Chew [Baby Aspirin 81 mg Chew] 81 mg PO DAILY 08/26/22 [History] Levothyroxine Sodium 25 mg PO DAILY 08/26/22 [History] Losartan Potassium 100 mg PO DAILY 08/26/22 [History] Rosuvastatin Calcium 5 mg PO DAILY 08/26/22 [History] Allopurinol 300 mg [Zyloprim 300 mg] 300 mg PO DAILY 09/13/23 [History] Baclofen 10 mg [Lioresal 10 mg] 10 mg PO BID 09/13/23 [History] Chlorthalidone 25 mg PO DAILY 09/13/23 [History] Isosorbide Mononitrate 30 mg [Imdur 30 MG] 30 mg PO DAILY 09/13/23 [History] Loratadine 10 mg [Claritin 10 mg] 10 mg PO DAILY 09/13/23 [History] Omeprazole/Sodium Bicarbonate [Zegerid 20 mg Capsule] 20 mg PO DAILY 09/13/23 [History] Potassium Chloride [Klor-Con 10] 10 meq PO DAILY 09/13/23 [History] Propranolol HCl [Inderal ] 80 mg PO BID 09/13/23 [History] Sucralfate 1000 mg/10 ml [Carafate SUSPENSION 1000 MG/10 ML] 10 ml PO ACHS 09/13/23 [History] Tirzepatide [Mounjaro] 10 mg SQ WEEKLY 09/13/23 [History] Hx Tetanus, Diphtheria Vaccination/Date Given: No Hx Influenza Vaccination/Date Given: No Hx Pneumococcal Vaccination/Date Given: No Immunizations Up to Date: Yes Travel Risk - International Travel Have you traveled outside of the country in past 3 weeks: No - Emerging Infectious Disease Are you exhibiting symptoms associated with any current EIDs: No - Review of Systems Constitutional: No Fever, No Chills Eyes: No Symptoms Ears, Nose, & Throat: No Symptoms Respiratory: No Cough, No Dyspnea Cardiac: No Chest Pain, No Edema, No Syncope Abdominal/Gastrointestinal: Abdominal Pain, Nausea, Vomiting, No Diarrhea Genitourinary Symptoms: No Dysuria Musculoskeletal: No Back Pain, No Neck Pain Skin: No Rash Neurological: No Dizziness, No Focal Weakness, No Sensory Changes Psychological: No Symptoms Endocrine: No Symptoms All Other Systems: Reviewed and Negative - Past Medical History Pertinent Past Medical History: Yes Neurological History: Migraines, Other ENT History: No Pertinent History Cardiac History: High Cholesterol, Hypertension Respiratory History: Sleep Apnea, Other Endocrine Medical History: No Pertinent History, Diabetes Type II, Hypothyroidism Musculoskeletal History: No Pertinent History GI Medical History: Hemorrhoids History: No Pertinent History Psycho-Social History: Anxiety, Bipolar, Depression, Panic Disorder, Other Female Reproductive Disorders: No Pertinent History Other Medical History: PTSD, gout, pcos - Past Surgical History Past Surgical History: Yes Neuro Surgical History: No Pertinent History Cardiac: No Pertinent History Respiratory: No Pertinent History Gastrointestinal: No Pertinent History Genitourinary: No Pertinent History Musculoskeletal: No Pertinent History Female Surgical History: Section Significant Family History: heart disease - Female History Hx Now: No - Social History Smoking Status: Never smoker How long have you smoked: 15 YEARS Exposure to second hand smoke: No Drug Use: none Patient Lives Alone: No - Nursing Vital Signs Nursing Vital Signs: Initial Vital Signs Temperature 97.5 F 09/13/23 16:21 Pulse Rate 94 H 09/13/23 16:21 Respiratory Rate 18 09/13/23 16:21 Blood Pressure 144/70 09/13/23 16:21 O2 Sat by Pulse Oximetry 96 09/13/23 16:21 Pain Scale Pain Intensity 10 - Physical Exam General Appearance: no apparent distress, alert Eye Exam: PERRL/EOMI, eyes nml inspection Ears, Nose, Throat Exam: normal ENT inspection, pharynx normal, moist mucous membranes Neck Exam: normal inspection, non-tender, supple, full range of motion Respiratory Exam: normal breath sounds, lungs clear, No respiratory distress Cardiovascular Exam: regular rate/rhythm, normal heart sounds Gastrointestinal/Abdomen Exam: soft, No tenderness, No mass Back Exam: normal inspection, normal range of motion, No CVA tenderness, No vertebral tenderness Extremity Exam: normal inspection, normal range of motion, pelvis stable Neurologic Exam: alert, oriented x 3, cooperative, normal mood/affect, nml cerebellar function, sensation nml, No motor deficits Skin Exam: normal color, warm, dry SpO2: 96 - Course Nursing assessment & vital signs reviewed: Yes Ordered Tests: Active Orders 24 hr Category Date Time Status ABDOMEN AND PELVIS W&WO CONTRA [CT] Stat Exams 09/13/23 17:44 Taken AMYLASE Stat Lab 09/13/23 16:50 Completed CBC W DIFF Stat Lab 09/13/23 16:50 Completed CMP Stat Lab 09/13/23 16:50 Completed LIPASE Stat Lab 09/13/23 16:50 Completed Medication Summary Discontinued Medications Generic Name Dose Route Start Last Admin Trade Name Freq PRN Reason Stop Dose Admin Sodium Chloride 1,000 mls @ 999 mls/hr 09/13/23 16:38 09/13/23 18:36 Sodium Chloride 0.9% 1000 Ml IV 09/13/23 17:38 Infused .Q1H1M STA Infusion Sodium Chloride Confirm 09/13/23 17:04 Sodium Chloride 0.9% 1000 Ml Administered 09/13/23 17:05 Dose 1,000 mls @ ud .ROUTE .STK-MED ONE Ondansetron HCl 4 mg 09/13/23 16:38 09/13/23 17:09 Ondansetron Hcl 4 Mg/2 Ml Vial IV 09/13/23 16:39 4 mg STAT ONE Administration Ondansetron HCl Confirm 09/13/23 17:03 Ondansetron Hcl 4 Mg/2 Ml Vial Administered 09/13/23 17:04 Dose 4 mg .ROUTE .STK-MED ONE Pantoprazole Sodium 40 mg 09/13/23 16:38 09/13/23 17:09 Pantoprazole 40 Mg Vial IV 09/13/23 16:39 40 mg STAT ONE Administration Pantoprazole Sodium Confirm 09/13/23 17:03 Pantoprazole 40 Mg Vial Administered 09/13/23 17:04 Dose 40 mg IV .STK-MED ONE Lab/Rad Data: Laboratory Result Diagrams 09/13/23 16:50 09/13/23 16:50 Laboratory Results 09/13/23 09/13/23 Range/Units 16:50 16:50 WBC 14.4 H (4.0-10.5) x10^3/uL RBC 4.22 (4.1-5.4) x10^6/uL Hgb 12.4 (12.0-16.0) g/dL Hct 38.7 (35-47) % MCV 91.7 (78-100) fL MCH 29.4 (26-32) pg MCHC 32.0 (32-36) g/dL RDW 15.9 H (11.5-14.0) % Plt Count 327 (150-450) x10^3/uL MPV 9.6 (7.5-11.0) fL Gran % 74.0 H (36.0-66.0) % Immature Gran % (Auto) 0.7 H (0.00-0.4) % Nucleat RBC Rel Count 0.0 (0.00-0.1) % Eos # (Auto) 0.41 (0-0.5) x10^3/uL Immature Gran # (Auto) 0.10 H (0.00-0.03) x10^3u/L Absolute Lymphs (auto) 2.53 (1.0-4.6) x10^3/uL Absolute Monos (auto) 0.69 (0.0-1.3) x10^3/uL Absolute Nucleated RBC 0.00 (0.00-0.01) x10^3u/L Lymphocytes % 17.5 L (24.0-44.0) % Monocytes % 4.8 (0.0-12.0) % Eosinophils % 2.8 (0.00-5.0) % Basophils % 0.2 (0.0-0.4) % Absolute Granulocytes 10.67 H (1.4-6.9) x10^3/uL Basophils # 0.03 (0-0.4) x10^3/uL Sodium 139 (135-145) mmol/L Potassium 3.8 (3.5-5.1) mmol/L Chloride 102 (98-107) mmol/L Carbon Dioxide 25 (22-30) mmol/L Anion Gap 15.6 H (5-15) MEQ/L BUN 19 H (7-17) mg/dL Creatinine 0.84 (0.52-1.04) mg/dL Estimated GFR 88.4 ML/MIN Glucose 118 H (74-106) mg/dL Calcium 9.7 (8.4-10.2) mg/dL Total Bilirubin 0.30 (0.2-1.3) mg/dL AST 23 (14-36) U/L ALT 27 (0-35) U/L Alkaline Phosphatase 123 (38-126) U/L Serum Total Protein 7.7 (6.3-8.2) g/dL Albumin 4.2 (3.5-5.0) g/dL Amylase 59 (30-110) U/L Lipase 28 (23-300) U/L - Progress Progress: improved, pain not gone completely Counseled pt/family regarding: lab results, diagnosis, need for follow-up Medical Desision Making - Diagnostic Testing Diagnostic test were ordered, analyzed, and reviewed by me: Yes - Risk of complications Minimal Risk: Minimal risk of morbidity - Departure Departure Disposition: Home Clinical Impression: Abdominal pain Qualifiers: Abdominal location: generalized Qualified Code(s): R10.84 - Generalized abdominal pain Adverse drug effect Qualifiers: Encounter type: initial encounter Qualified Code(s): T50.905A - Adverse effect of unspecified drugs, medicaments and biological substances, initial encounter Condition: Stable Critical Care Time: No Referrals: SARAH DE LA PAZ NP [Primary Care Provider] - Follow up/PCP as directed Instructions: Severe Abdominal Pain, Adult (DC), Adverse Drug Reactions, Adult (DC) Additional Instructions: Stop your Mounjaro for next 2 weeks then start with 7.5 mg dose. Let your primary care physician know about your ER visit. Discharge/Care Plan BEN MURPHY was seen on 09/13/23 in the Emergency Room. The patient was counseled regarding Diagnosis,Lab results, Imaging studies, need for follow up and when to return to the Emergency Room. Prescriptions given: Discharge Note I have spoken with the patient and/or caregivers. I have explained the patient's condition, diagnosis and treatment plan based on the information available to me at this time. I have answered the patient's and/or caregiver's questions and addressed any concerns. The patient and/or caregivers have as good understanding of the patient's diagnosis, condition and treatment plan as can be expected at this point. The vital signs have been stable. The patient's condition is stable and appropriate for discharge from the emergency department. The patient will pursue further outpatient evaluation with the primary care physician or other designated or consulting physician as outlined in the discharge instructions. The patient and/or caregivers are agreeable to this plan of care and follow-up instructions have been explained in detail. The patient and/or caregivers have received these instruction. The patient/and or caregivers are aware that any significant change in condition or worsening of symptoms should prompt an immediate return to this or the closest emergency department or call 911. BEN MURPHY was seen on 09/13/23 n the Emergency Room. At that time you were treated for an emergent condition, during your visit Laboratory, Radiology and/or other procedures may have been ordered. It is very important that you fol low-up with your Primary Care Physician SARAH DE LA PAZ NP within the next 24- 48 hours to review your Emergency Room visit and the final results of testing that was ordered. Some test results such as Urine Cultures, Blood Cultures, and other cultures if ordered will not be finalized for 24-48 hours. If you do not have a Primary Care Provider please call the medical records department at [phone] ext [phone] to obtain a copy of your results or you may sign into our patient portal to obtain these results by visiting us @ [email or web address] and completing the following steps: 1. Click on the Patient Portal link 2. Click the Patient Self Enrollment Link to complete the enrollment form and entering your 3. Once the enrollment form is completed you will receive an email with a temporary ID and password at the email address you provided. 4. Next choose a user name and password. Your user name must be at least 4 characters long and your password must be at least 4 characters long. 5. Choose a security question from the list and provide your answer to the question. If you already have signed into the Health Portal you may access your Health Care Information 13/01 by the following steps: 1. Login to our website @ [email or web address] 2. Enter your original user name and password. FAQS The [facility] Health Portal is an online tool that contains your Lab Results, Radiology Reports, Visit History, Discharge Instructions and Health Summary Lab and Radiology Results will not be available for 72 hours on the portal. The Portal is a secure site, passwords are encryted and URLs are re-written so they cannot be copied and pasted. You and authorized family members are the only ones who can access your Portal. Also there is a timeout feature that protects your information if you leave the Portal page open. If you have technical difficulty please use the Contact Us link on the page this will allow you to submit any questions you have regarding the Portal or you may contact the Medical Record Department at [phone] ext [phone]. Prescriptions: Ondansetron ODT 4 MG [Zofran Odt 4 mg] 4 mg PO Q6H PRN PRN #10 tablet PRN Reason: Nausea
[2023-09-13] MEDS ORDERED: PROTONIX 40 MG IV IV ONE (17:03)
[2023-09-13] MEDS ORDERED: Zofran 4 MG/2 ML VIAL ONE (17:03)
[2023-09-13] MEDS ORDERED: Sodium Chloride 0.9% 1000 ML 1,000 ML ONE (17:04)
[2023-09-13 17:05] VITALS: BP 122/84
[2023-09-13] MEDS: Zofran 4 MG/2 ML VIAL IV ONE (17:09)
[2023-09-13] MEDS: PROTONIX 40 MG IV IV ONE (17:09)
[2023-09-13] MEDS: Sodium Chloride 0.9% 1000 ML 1,000 ML IV STA (17:09)
[2023-09-13 17:10] LABS: ALBUMIN 4.2 g/dL (3.5-5.0); ANION GAP 15.6 MEQ/L (5-15); BILIRUBIN,TOTAL 0.3 mg/dL (0.2-1.3); Calcium 9.7 mg/dL (8.4-10.2); Creatinine 1 0.84 mg/dL (0.52-1.04); EST GLOMERULAR FILTRATION RATE 88.4 ML/MIN; Potassium 3.8 mmol/L (3.5-5.1); Total Protein 7.7 g/dL (6.3-8.2)
[2023-09-13 17:37] VITALS: O2SAT 96
--- NOTE | 2023-09-13 18:59 | XRAY ---
CLINICAL HISTORY: abdominal pain TECHNIQUE: CT scan of the abdomen and pelvis was performed without and with IV contrast, Coronal and sagittal reconstructive images were also obtained. One of the following dose reduction techniques were utilized for this exam: Automated exposure control, adjustment of the mA and/or kV according to patient size, use of iterative reconstruction COMPARISON: None FINDINGS: Lung bases are unremarkable. Abdomen: The liver is enlarged measuring 25.5 cm craniocaudally. The intrahepatic biliary radicals and the bile ducts are normal. The gallbladder is normal. No pericholecystic fluid collection or radio-dense calculi in the gall bladder. The spleen, pancreas, and adrenal glands are unremarkable. The kidneys are unremarkable. They are normal in size and shape. No calculi or hydronephrosis is seen. The ascending colon, the transverse colon, the descending colon, visualized small bowel loops are unremarkable. The appendix is unremarkable. There is no evidence of significant enlargement of the mesenteric or retroperitoneal lymph nodes. Pelvis: The urinary bladder is unremarkable. The rectosigmoid colon is unremarkable. Two thin-walled right ovarian cysts are noted without prominent solid components measuring approximately 8.3 x 5.6 and 4.1 x 2.8 cm. No prominent contrast enhancement seen on the lesions. The pelvic vasculature is unremarkable. No evidence of pelvic lymphadenopathy. No definite bony abnormalities could be depicted. The osseous structures in the lower rib cage and lumbar spine show no abnormality. IMPRESSION: 1. Two thin-walled right ovarian cysts without prominent solid components, clinical correlation, and follow-up are recommended, and pelvic MRI may be considered if clinically indicated. 2. Hepatomegaly. Electronically Signed by: Christie Weinberg MD. (09/13/2023 18:55:26 EDT)
== END 2023-09-13 19:24 | disposition home or self-care (01) ==
LOC: ED 16:11
DX: R10.84 Generalized abdominal pain (principal); T50.995A Adverse effect of other drugs, medicaments and biological substances, initial encounter; R11.2 Nausea with vomiting, unspecified; E78.5 Hyperlipidemia, unspecified; I10 Essential (primary) hypertension; E11.9 Type 2 diabetes mellitus without complications; Z79.85 Long-term (current) use of injectable non-insulin antidiabetic drugs; Z79.899 Other long term (current) drug therapy
CPT/HCPCS: 36000; 36415; 74178; 80053; 82150; 83690; 85025; 96374; 96375; 99284; J2405